=== PATIENT | male | born 1985 | race Hispanic/Latino ===

== ENCOUNTER 2025-06-16 14:10 | Emergency (ER) | payer MEDICAID ==
[~2025-06-16] VITALS: Ht 165.1 cm; Wt 69.9 kg
[~2025-06-16 14:10] MED LIST: CYCL-309 PO; DEXAMETHASONE 1.5 MG PO; IBUP-2077 PO
[2025-06-16 15:08] LABS: APPEARANCE,URINE CLEAR (CLEAR); GLUCOSE, URINE (UA) NEGATIVE (NEGATIVE); LEUKOCYTE ESTERASE ,URINE NEGATIVE Leu/uL (NEGATIVE); NITRATE,URINE NEGATIVE (NEGATIVE); OCCULT BLOOD,URINE NEGATIVE (NEGATIVE)
[2025-06-16 15:17] LABS: IMMATURE GRANULOCYTE ABSOLUTE 0.02 K/uL (0-1); NUCLEATED RED BLOOD CELLS 0.0 % (0.0-0.19); PLATELET COUNT (AUTO) 216 K/uL (130-400); RED BLOOD CELL COUNT(AUTO) 4.85 MIL/uL (4.50-6.20); RED CELL DISTRIBUTION WIDTH 13.1 % (11.0-15.5); WHITE BLOOD COUNT (AUTO) 6.3 K/uL (4.8-10.8)
[2025-06-16 15:25] LABS: CREATININE 1.0 mg/dL (0.5-1.3); GLOMERULAR FILTR. RATE CALC 98.0 mL/min (>90); GLUCOSE,RANDOM 104.0 mg/dL (70-105); SODIUM SERUM 137.0 mmol/L (136-145); UREA NITROGEN, BLOOD 16.0 mg/dL (7-18)
[2025-06-16 15:34] LABS: ADD UA MICROSCOPIC NO
--- NOTE | 2025-06-16 18:19 | ERN ---
General Chief Complaint: Abdominal Pain Stated Complaint: ABD PAIN Time Seen by MD: 16:51 Time Seen by Midlevel: 16:51 Source: patient History of Present Illness Initial Comments Patient is a 39-year-old male with no significant past medical history presenting to the emergency department for evaluation of intermittent right upper quadrant abdominal pain that has been ongoing for one week. He was seen at [facility] last week and was told his liver enzymes are elevated and ultimately discharged home. Today he reports with increased pain. Denies any alcohol intake. He does admit to taking Nitric Oxide supplementation in his concerned this may be causing his elevated liver enzymes. The pain is worse with deep inspiration. Denies any other symptoms Allergies: Coded Allergies: No Known Drug Allergies (Verified Allergy, 08/23/12) Home Meds Active Scripts Cyclobenzaprine HCl (Cyclobenzaprine HCl) 10 Mg Tablet, 10 MG PO TID, #15 TAB 0 Refills Prov:HUBER PERALTA MD 04/19/22 Ibuprofen (Ibuprofen 800 mg Tab) 800 Mg Tab, 800 MG PO Q8HR PRN for PAIN, #30 TAB 0 Refills Prov:HUBER PERALTA MD 04/19/22 [Dexpak 6 Day 1.5 Mg] No Conflict Check, 1 BAR PO DAILY for 6 Days, #1 PACK 0 Refills Prov:HUBER PERALTA MD 04/19/22 Past Medical History Past Medical History: No Pertinent History Past Surgical History: Other Surgical History Other: LEFT CLUB FOOT SX ROS Dictation CONSTITUTIONAL: Negative except for HPI HEAD/FACE: Negative except for HPI EENT: Negative except for HPI RESPIRATORY: Negative except for HPI GASTROINTESTINAL/ABDOMINAL: Negative except for HPI GENITOURINARY: Negative except for HPI MUSCULOSKELETAL: Negative except for HPI INTEGUMENTARY: Negative except for HPI NEUROLOGICAL/PSYCH: Negative except for HPI HEMATOLOGIC/LYMPHATIC: Negative except for HPI All Systems Negative, Except as noted above. 13 point review of systems assessed and all negative except for above. Physical Exam Physical Exam Dictation Vital Signs reviewed General Appearance: Alert, oriented x 3, no acute distress, well developed, nourished. Head and Face: non-traumatic. Eyes: PERRL, pink conjunctivas, eyelid no trauma, anterior chamber with arcus senilis. Ears: Pinnas intact and no signs of trauma or erythema ear canals clear and no discharge TM no erythema Nose: No discharge, no bleeding. Oropharynx: Mouth normal, tongue pink, pharynx clear,no erythema, tonsils no exudates, no abscesses noted, mucous membrane moist Neck: Supple, non-tender, no thyromegaly, no masses, no JVD, no bruits Breast:Deferred Chest:No tenderness, no crepitus, no paradoxical movement, no retractions Lungs:Clear, well-ventilated, symmetric, no rales, no wheezing, no rhonchi, no stridor, good breath sounds bilaterally Heart: Regular rate, regular rhythm, no murmur, no gallops Vascular: no peripheral edema, Abdomen: Soft, positive bowel sounds, nondistended, no guarding, nontender, no rebound, no masses no hepatomegaly, no splenomegaly, no Barclay's sign, no hernias. Rectal: Deferred Genital: Deferred Neurological: Normal speech, motor function intact, sensory function intact Musculoskeletal: Neck nontender, full range of motion, back nontender, full range of motion, Extremities: nontender, full range of motion Skin: Color pink, dry, no turgor, no rash, no lacerations, no abrasions, no contusions. Lymphatic: Deferred Results Laboratory and Microbiology Lab and Micro Result Laboratory Tests Test 06/16/25 15:00 06/16/25 15:12 Urine Color LIGHT-YELLOW (YELLOW) Urine Appearance CLEAR (CLEAR) Urine pH 6.5 (5.0-8.0) Urine Specific [place] 1.012 (1.001-1.031) Urine Protein NEGATIVE mg/dL (NEGATIVE) Urine Glucose (UA) NEGATIVE mg/dL (NEGATIVE) Urine Ketones NEGATIVE mg/dL (NEGATIVE) Urine Occult Blood NEGATIVE (NEGATIVE) Urine Nitrate NEGATIVE (NEGATIVE) Urine Bilirubin NEGATIVE mg/dL (NEGATIVE) Urine Urobilinogen 0.2 mg/dL (0.2-1.0) Urine Leukocyte Esterase NEGATIVE Teodoro/uL White Blood Count 6.3 K/uL (4.8-10.8) Red Blood Count 4.85 MIL/uL (4.50-6.20) Hemoglobin 14.8 g/dL (14.0-18.0) Hematocrit 43.9 % (42-54) Mean Corpuscular Volume 90.5 fL (79-99) Mean Corpuscular Hemoglobin 30.5 pg (27.0-33.0) Mean Corpuscular Hemoglobin Concent 33.7 g/dL (32.0-36.0) Red Cell Distribution Width 13.1 % (11.0-15.5) Platelet Count 216 K/uL (130-400) Mean Platelet Volume 9.0 fL (7.5-10.5) Immature Granulocyte % (Auto) 0.3 % (0-1) Neutrophils (%) (Auto) 63.3 % (40.0-77.0) Lymphocytes (%) (Auto) 28.0 % (21.0-51.0) Monocytes (%) (Auto) 8.1 % (3.0-13.0) Eosinophils (%) (Auto) 0.0 % (0.0-8.0) Basophils (%) (Auto) 0.3 % (0.0-5.0) Neutrophils # (Auto) 4.0 K/uL (1.8-7.7) Lymphocytes # (Auto) 1.8 K/uL (1.0-4.8) Monocytes # (Auto) 0.5 K/uL (0.1-1.0) Eosinophils # (Auto) 0.00 K/uL (0.00-0.70) Basophils # (Auto) 0.02 K/uL (0.00-0.20) Absolute Immature Granulocyte (auto 0.02 K/uL (0-1) Nucleated Red Blood Cells 0.0 % (0.0-0.19) Sodium Level 137 mmol/L (136-145) Potassium Level 4.0 mmol/L (3.5-5.1) Chloride Level 100 mmol/L (101-111) L Carbon Dioxide Level 33 mmol/L (21-32) H Blood Urea Nitrogen 16 mg/dL (7-18) Creatinine 1.0 mg/dL (0.5-1.3) Glomerular Filtration Rate Calc 98 mL/min (>90) Random Glucose 104 mg/dL (70-105) Total Calcium 9.2 mg/dL (8.5-10.1) Total Bilirubin 0.5 mg/dL (0.2-1.0) Direct Bilirubin 0.1 mg/dL (0.0-0.3) Aspartate Amino Transf (AST/SGOT) 25 U/L (10-37) Alanine Aminotransferase (ALT/SGPT) 44 U/L (12-78) Alkaline Phosphatase 72 U/L (50-136) Total Protein 7.4 g/dL (6.0-8.3) Albumin 4.0 g/dL (3.5-5.0) Lipase 40 U/L (16-77) Labs Reviewed?: Yes MDM Patient is a 39-year-old male with no significant past medical history presenting to the emergency department for evaluation of intermittent right upper quadrant abdominal pain that has been ongoing for one week. He was seen at [facility] last week and was told his liver enzymes are elevated and ultimately discharged home. Today he reports with increased pain. Denies any alcohol intake. He does admit to taking Nitric Oxide supplementation in his concerned this may be causing his elevated liver enzymes. The pain is worse with deep inspiration. Denies any other symptoms. On physical examination patient is in no acute distress. There was no right upper quadrant tenderness on my examination however given his recent elevated liver enzymes I will go ahead and obtain an ultrasound and liver function tests. Our liver enzyme tests here are negative. Patient's CBC is normal. Patient's urine is normal. ED Course Orders Procedure Category Date Status Time Urinalysis Profile LAB 06/16/25 Complete 15:01 Cbc With Differential LAB 06/16/25 Complete 15:01 Lipase LAB 06/16/25 Complete 15:01 Basic Metabolic Panel LAB 06/16/25 Complete 15:01 Hepatic Function Panel LAB 06/16/25 Complete 18:08 Us Abdominal Ruq\Ltd US 06/16/25 Taken 18:08 Chest 1vw RAD 06/16/25 Taken 18:13 Vital Signs Date Time Temp Pulse Resp B/P (MAP) Pulse Ox O2 Delivery O2 Flow Rate FiO2 06/16/25 15:26 98.1 55 16 126/60 100 Room Air* 0 21 06/16/25 14:15 98.1 58 18 126/60 98 Room Air 0 DX & DISP Disposition: Discharge Departure Impression: Primary Impression: Abdominal pain Condition: Stable Additional Instructions: 39-year-old healthy male comes in with concerns for elevated liver function tests. We have repeated them here and they are negative. We have performed an ultrasound and it did not show gallbladder disease. Your other laboratory tests were normal. I recommend stopping the testosterone supplements. You do not need them. And they can cause more problems such as blood clotting and liver damage. Referrals: ROBERTO DONAHUE MD (PCP) I have reviewed the case, and I agree with, Diagnosis and Plan I performed the substantive portion of the visit. I have reviewed and personally made and approve the management plan that is documented in the note by myself or the SUJATA. I acknowledge for responsibility for the patient's management plan. KATYA GARCIA Jun 16, 2025 18:19 KUN COOL MD Jun 16, 2025 19:15
[2025-06-16 18:34] LABS: ASPARTATE AMINOTRANSFERASE 25.0 U/L (10-37); TOTAL PROTEIN, SERUM 7.4 g/dL (6.0-8.3)
--- NOTE | 2025-06-16 19:07 | HMCIMG ---
EXAM: CR Chest, 1 View. CLINICAL HISTORY: r/o pneumo COMPARISON: None provided. FINDINGS: LUNGS: There is no mass, infiltrate, or acute pulmonary abnormality. PLEURAL SPACES: No pleural effusion or pneumothorax. MEDIASTINUM: The cardiomediastinal silhouette is within normal limits. BONES: No aggressive appearing osseous lesion seen. IMPRESSION: No acute cardiopulmonary pathology is evident. /[place]
[2025-06-16 19:37] VITALS: BP 124/60; PULSE 58; RESP 16; TEMP 98.1; O2SAT 100
--- NOTE | 2025-06-16 19:59 | HMCIMG ---
EXAMINATION: US Abdomen, Right Upper Quadrant. CLINICAL HISTORY: Patient presents with right upper quadrant abdominal pain. TECHNIQUE: Right upper quadrant sonography performed with image documentation. COMPARISON: None provided. FINDINGS: LIVER: The liver measures 15.2 cm and is within normal limits in echogenicity. No focal liver mass is identified. GALLBLADDER: The gallbladder wall thickness is 1 mm. The gallbladder appears normal. No gallstones are identified. COMMON BILE DUCT: The common bile duct measures 3 mm, within normal limits. PANCREAS: The visualized pancreas appears within normal limits. RIGHT KIDNEY: The right kidney measures 11.6 x 5.9 x 5.5 cm. Renal contours are normal. No renal mass, calculus, or hydronephrosis. IMPRESSION: Normal right upper quadrant ultrasound. Normal appearance of the gallbladder without cholelithiasis or wall thickening. No biliary dilatation. /[place]
== END 2025-06-16 19:43 | disposition home or self-care (01) ==
LOC: EDH 14:10
DX: R10.11 Right upper quadrant pain (principal); Z79.899 Other long term (current) drug therapy
CPT/HCPCS: 36415; 71045; 76705; 80048; 80076; 81003; 83690; 85025; 99284

== ENCOUNTER 2025-06-25 14:37 | Emergency (ER) | payer MEDICAID ==
[~2025-06-25] VITALS: Ht 165.1 cm; Wt 69.9 kg
--- NOTE | 2025-06-25 14:43 | ERN ---
ED Note History of Present Illness Stated Complaint: CP Chief Complaint: Chest Pain Time Seen by MD: 14:38 Dictation: PATIENT IS A 39-YEAR-OLD MALE COMING IN TODAY WITH COMPLAINTS OF SUBSTERNAL CHEST PAIN THAT RADIATES TO HIS LEFT SHOULDER ONSET 1 HOUR PRIOR TO ARRIVAL. HE STATES HE WAS WORK WHEN HE FELT IT AND IT WAS LIKE A SQUEEZING SENSATION. NO SHORTNESS BREATH NO BACK PAIN NO JAW PAIN. 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 DOES HAVE A HISTORY OF A MURMUR A BABY. HAS BEEN SEEN AT [facility] IN THE PAST FOR THE SAME COMPLAINT. NEVER FOLLOWED UP WITH THE PRIMARY CARE DOCTOR TELEPHONE SERVICE ADVISER'S. NO PAIN AT THE PRESENT TIME. Allergies: Coded Allergies: No Known Drug Allergies (Verified Allergy, 08/23/12) Home Meds Active Scripts Cyclobenzaprine HCl (Cyclobenzaprine HCl) 10 Mg Tablet, 10 MG PO TID, #15 TAB 0 Refills Prov:HUBER PERALTA MD 04/19/22 Ibuprofen (Ibuprofen 800 mg Tab) 800 Mg Tab, 800 MG PO Q8HR PRN for PAIN, #30 TAB 0 Refills Prov:HUBER PERALTA MD 04/19/22 [Dexpak 6 Day 1.5 Mg] No Conflict Check, 1 BAR PO DAILY for 6 Days, #1 PACK 0 Refills Prov:HUBER PERALTA MD 04/19/22 Past Medical History Past Medical History: No Pertinent History Surgical History: Other Surgical History Other: LEFT CLUB FOOT SX RN Note Reviewed/Agreed w/PFSH: Yes Review of System Dictation CONSTITUTIONAL: NEGATIVE EXCEPT FOR HPI HEAD/FACE: NEGATIVE EXCEPT FOR HPI EENT: NEGATIVE EXCEPT FOR HPI RESPIRATORY: NEGATIVE EXCEPT FOR HPI SUBSTERNAL CHEST PAIN THAT RADIATES TO LEFT SHOULDER GASTROINTESTINAL/ABDOMINAL: NEGATIVE EXCEPT FOR HPI GENITOURINARY: NEGATIVE EXCEPT FOR HPI MUSCULOSKELETAL: NEGATIVE EXCEPT FOR HPI INTEGUMENTARY: NEGATIVE EXCEPT FOR HPI NEUROLOGICAL/PSYCH: NEGATIVE EXCEPT FOR HPI HEMATOLOGIC/LYMPHATIC: NEGATIVE EXCEPT FOR HPI ALL SYSTEMS NEGATIVE, EXCEPT NOTED ABOVE. 13 POINT REVIEW OF SYSTEMS ASSESSED AND ALL NEGATIVE EXCEPT FOR ABOVE. Initial Vital Sign VS Vital Signs Date Time Temp Pulse Resp B/P (MAP) Pulse Ox O2 Delivery O2 Flow Rate FiO2 06/25/25 14:38 97.9 60 17 124/74 96 Room Air 06/25/25 15:03 0 21 Physical Exam Dictation VITAL SIGNS REVIEWED GENERAL APPEARANCE: ALERT, ORIENTED X 3, NO ACUTE DISTRESS, WELL DEVELOPED, NOURISHED. NO PAIN AT THE PRESENT TIME EYES: PERRL, PINK CONJUNCTIVAS, EYELID NO TRAUMA, ANTERIOR CHAMBER WITH ARCUS SENILIS. EARS: PINNAS INTACT AND NO SIGNS OF TRAUMA OR ERYTHEMA EAR CANALS CLEAR AND NO DISCHARGE TM NO ERYTHEMA NOSE: NO DISCHARGE, NO BLEEDING. OROPHARYNX: MOUTH NORMAL, TONGUE PINK, PHARYNX CLEAR,NO ERYTHEMA, TONSILS NO EXUDATES, NO ABSCESSES NOTED, MUCOUS MEMBRANE MOIST NECK: SUPPLE, NON-TENDER, NO THYROMEGALY, NO MASSES, NO JVD, NO BRUITS BREAST:DEFERRED CHEST:NO TENDERNESS, NO CREPITUS, NO PARADOXICAL MOVEMENT, NO RETRACTIONS LUNGS:CLEAR, WELL-VENTILATED, SYMMETRIC, NO RALES, NO WHEEZING, NO RHONCHI, NO STRIDOR, GOOD BREATH SOUNDS BILATERALLY HEART: REGULAR RATE, REGULAR RHYTHM, NO MURMUR, NO GALLOPS VASCULAR: NO PERIPHERAL EDEMA, ABDOMEN: SOFT, POSITIVE BOWEL SOUNDS, NONDISTENDED, NO GUARDING, NONTENDER, NO REBOUND, NO MASSES NO HEPATOMEGALY, NO SPLENOMEGALY, NO WOOD'S SIGN, NO HERNIAS. RECTAL: DEFERRED GENITAL: DEFERRED NEUROLOGICAL: NORMAL SPEECH, MOTOR FUNCTION INTACT, SENSORY FUNCTION INTACT MUSCULOSKELETAL: NECK NONTENDER, FULL RANGE OF MOTION, BACK NONTENDER, FULL RANGE OF MOTION, EXTREMITIES: NONTENDER, FULL RANGE OF MOTION SKIN: COLOR PINK, DRY, NO TURGOR, NO RASH, NO LACERATIONS, NO ABRASIONS, NO CONTUSIONS. LYMPHATIC: DEFERRED Results (Laboratory/Radiology) Laboratory/Radiology Laboratory Tests Test 06/25/25 14:51 06/25/25 14:55 06/25/25 15:58 Urine Color COLORLESS (YELLOW) Urine Appearance CLEAR (CLEAR) Urine pH 6.0 (5.0-8.0) Urine Specific [place] 1.007 (1.001-1.031) Urine Protein NEGATIVE mg/dL (NEGATIVE) Urine Glucose (UA) NEGATIVE mg/dL (NEGATIVE) Urine Ketones NEGATIVE mg/dL (NEGATIVE) Urine Occult Blood NEGATIVE (NEGATIVE) Urine Nitrate NEGATIVE (NEGATIVE) Urine Bilirubin NEGATIVE mg/dL (NEGATIVE) Urine Urobilinogen 0.2 mg/dL (0.2-1.0) Urine Leukocyte Esterase NEGATIVE Teodoro/uL Urine Opiates Screen NEGATIVE (NEGATIVE) Urine Barbiturates Screen NEGATIVE (NEGATIVE) Urine Phencyclidine Screen NEGATIVE (NEGATIVE) Urine Amphetamines Screen NEGATIVE (NEGATIVE) Urine Benzodiazepines Screen NEGATIVE (NEGATIVE) Urine Cocaine Screen NEGATIVE (NEGATIVE) Urine Marijuana (THC) Screen POSITIVE (NEGATIVE) H White Blood Count 6.5 K/uL (4.8-10.8) Red Blood Count 4.62 MIL/uL (4.50-6.20) Hemoglobin 13.9 g/dL (14.0-18.0) L Hematocrit 41.5 % (42-54) L Mean Corpuscular Volume 89.8 fL (79-99) Mean Corpuscular Hemoglobin 30.1 pg (27.0-33.0) Mean Corpuscular Hemoglobin Concent 33.5 g/dL (32.0-36.0) Red Cell Distribution Width 12.9 % (11.0-15.5) Platelet Count 232 K/uL (130-400) Mean Platelet Volume 8.8 fL (7.5-10.5) Immature Granulocyte % (Auto) 0.3 % (0-1) Neutrophils (%) (Auto) 57.2 % (40.0-77.0) Lymphocytes (%) (Auto) 34.9 % (21.0-51.0) Monocytes (%) (Auto) 7.1 % (3.0-13.0) Eosinophils (%) (Auto) 0.2 % (0.0-8.0) Basophils (%) (Auto) 0.3 % (0.0-5.0) Neutrophils # (Auto) 3.7 K/uL (1.8-7.7) Lymphocytes # (Auto) 2.3 K/uL (1.0-4.8) Monocytes # (Auto) 0.5 K/uL (0.1-1.0) Eosinophils # (Auto) 0.01 K/uL (0.00-0.70) Basophils # (Auto) 0.02 K/uL (0.00-0.20) Absolute Immature Granulocyte (auto 0.02 K/uL (0-1) Nucleated Red Blood Cells 0.0 % (0.0-0.19) Sodium Level 138 mmol/L (136-145) Potassium Level 3.6 mmol/L (3.5-5.1) Chloride Level 102 mmol/L (101-111) Carbon Dioxide Level 27 mmol/L (21-32) Blood Urea Nitrogen 20 mg/dL (7-18) H Creatinine 0.8 mg/dL (0.5-1.3) Glomerular Filtration Rate Calc 115 mL/min (>90) Random Glucose 96 mg/dL (70-105) Total Calcium 8.8 mg/dL (8.5-10.1) Magnesium Level 1.90 mg/dL (1.80-2.40) Troponin I High Sensitivity 17 ng/L (4-75) 15 ng/L (4-75) Labs Reviewed?: Yes EKG Comment: EKG sinus bradycardia/heart rate 54/repolarization changes seen in lateral leads. 1557/EKG SINUS BRADYCARDIA/HEART RATE 51/AXIS NORMAL/EARLY REPOLARIZATION SEEN IN LATERAL LEADS V4 THROUGH SIX NO CHANGES HIGH SENSITIVITY TROPONIN IS 15/HEART SCORE IS ONE ED Course ED Course Orders Procedure Category Date Status Time Drug Screen Urine LAB 06/25/25 Complete 14:39 Cbc With Differential LAB 06/25/25 Complete 14:39 Chest 1vw RAD 06/25/25 Resulted 14:39 12 Lead Ekg Tracing- EKG 06/25/25 Logged Technical 14:39 Magnesium LAB 06/25/25 Complete 14:39 Troponin I High LAB 06/25/25 Complete Sensitivity 14:39 Urinalysis Profile LAB 06/25/25 Complete 14:39 Basic Metabolic Panel LAB 06/25/25 Complete 14:39 12 Lead Ekg Tracing- EKG 06/25/25 Logged Technical 15:52 Troponin I High LAB 06/25/25 Complete Sensitivity 15:52 Vital Signs Date Time Temp Pulse Resp B/P (MAP) Pulse Ox O2 Delivery O2 Flow Rate FiO2 06/25/25 15:47 97.9 58 19 121/73 99 Room Air* 0 21 06/25/25 15:03 97.9 53 19 141/76 99 Room Air* 0 21 06/25/25 14:38 97.9 60 17 124/74 96 Room Air 1640/PATIENT DISCHARGED HOME WITH ATYPICAL CHEST PAIN/MARIJUANA USE AND ANXIETY. HEART Score Response (Comments) Value EKG: Normal 0 Age: 45-65yrs (+1) 1 Risk Factors: No known risk factors (0) 0 Initial Troponin: Normal limit (0) 0 Total 1 Medical Decision Making MDM MDM: DIFFERENTIAL DIAGNOSIS: ACS/AMI/DRUG ABUSE/ELECTROLYTE IMBALANCE/DEHYDRATION/ARRHYTHMIA/PNEUMONIA/BRONCHITIS RATIONALE: TESTS CONSIDERED AND ORDERED SECONDARY TO SHARED DECISION MAKING INCLUDE: EKG/LABS/RADIOLOGY PREVIOUS OUTSIDE RECORDS REVIEWED: OLD ER VISITS. RISK OF COMPLICATION AND/OR MORBIDITY OR MORTALITY OF PATIENT MANAGEMENT: NONE MEDICATIONS-PER MEDICATION RECONCILIATION NEED FOR HOSPITALIZATION: PATIENT DOES NOT MEET CRITERIA FOR HOSPITALIZATION. NONE NEED FOR EMERGENCY MAJOR/MINOR SURGERY: NO THERE ARE NO SOCIAL CONCERNS WITH THIS PATIENT. PRESCRIPTION DRUG MANAGEMENT NONE PRESCRIPTIONS WILL INCLUDE SYMPTOMATIC CARE PATIENT'S PRIOR EXTERNAL MEDICAL RECORDS FROM OTHER ER VISITS WERE REVIEWED BY ME INDICATED. PRIOR TESTING AND RESULTS FROM PREVIOUS VISITS WERE REVIEWED. PRIOR TESTS WERE TAKEN INTO ACCOUNT WITH MEDICAL DECISION MAKING AND RESOURCE UTILIZATION, INDEPENDENT HISTORIAN/HISTORIANS WERE USED TO OBTAIN COMPLETE MEDICAL HISTORY. I INDEPENDENTLY INTERPRETED THE TEST THAT WERE PERFORMED, RESULTS WERE REVIEWED BY ME AND CONSIDERED FINDINGS ON RADIOLOGY IF ORDERED. MEDICAL MANAGEMENT AND EXAMINATION INTERPRETATION DISCUSSIONS WERE HAD BY ME WITH OTHER QUALIFIED HEALTHCARE PROFESSIONALS INDICATED FOR THE PATIENT'S CARE. DX & DISP Disposition: Discharge Departure Impression: Primary Impression: Atypical chest pain Additional Impressions: Marijuana smoker, Anxiety Condition: Stable Additional Instructions: FOLLOW-UP WITH PRIMARY CARE PROVIDER IN 1 TO 2 DAYS. TAKE MEDICATIONS DIRECTED HERE IN THE EMERGENCY ROOM. OKAY TO CONTINUE HOME MEDICATIONS UNLESS OTHERWISE DISCUSSED DURING YOUR VISIT IN THE EMERGENCY ROOM TODAY. RETURN TO YOUR NEAREST EMERGENCY ROOM IF SYMPTOMS WORSEN OR IF THERE IS NO IMPROVEMENT. CALL 911 IF YOU NEED IMMEDIATE ASSISTANCE. TAKE TYLENOL OR MOTRIN SANO-[id number] NEEDED AND IF NO CONTRAINDICATIONS ARE PRESENT. INCREASE ORAL HYDRATION. A WOUND CULTURE OR URINE CULTURE WAS ORDERED HERE IN THE EMERGENCY ROOM DEPARTMENT PLEASE FOLLOW-UP WITH PRIMARY CARE PROVIDER AND ADVISE THEM TO GET REPEAT PORTS FROM OUR FACILITY. IF YOU HAD ANY ADAMS WRAP/SPLINTS THAT WERE APPLIED HERE, PLEASE DO NOT REMOVE THEM UNTIL YOU SEE YOUR PRIMARY CARE OR SPECIALTY. DIET ACTIVITY TOLERATED. STOP SMOKING MARIJUANA. FOLLOW UP WITH YOUR PRIMARY CARE DOCTOR IN THE [place] 1-2 DAYS NEEDED. Referrals: ROBERTO DONAHUE MD (PCP) Time of Disposition: 16:44 I have reviewed the case, and I agree with, Diagnosis and Plan LIZZY GRECO NP Jun 25, 2025 14:43
[2025-06-25 15:04] LABS: APPEARANCE,URINE CLEAR (CLEAR); GLUCOSE, URINE (UA) NEGATIVE (NEGATIVE); LEUKOCYTE ESTERASE ,URINE NEGATIVE Leu/uL (NEGATIVE); NITRATE,URINE NEGATIVE (NEGATIVE); OCCULT BLOOD,URINE NEGATIVE (NEGATIVE)
[2025-06-25 15:06] LABS: IMMATURE GRANULOCYTE ABSOLUTE 0.02 K/uL (0-1); NUCLEATED RED BLOOD CELLS 0.0 % (0.0-0.19); PLATELET COUNT (AUTO) 232 K/uL (130-400); RED BLOOD CELL COUNT(AUTO) 4.62 MIL/uL (4.50-6.20); RED CELL DISTRIBUTION WIDTH 12.9 % (11.0-15.5); WHITE BLOOD COUNT (AUTO) 6.5 K/uL (4.8-10.8)
[2025-06-25 15:08] LABS: ADD UA MICROSCOPIC NO
[2025-06-25 15:10] LABS: AMPHET/METH SCREEN,URINE NEGATIVE (NEGATIVE); BARBITURATE SCREEN, URINE NEGATIVE (NEGATIVE); CANNABINOID SCREEN,URINE POSITIVE (NEGATIVE); COCAINE SCREEN,URINE NEGATIVE (NEGATIVE)
[2025-06-25 15:14] LABS: CREATININE 0.8 mg/dL (0.5-1.3); GLOMERULAR FILTR. RATE CALC 115.0 mL/min (>90); GLUCOSE,RANDOM 96.0 mg/dL (70-105); SODIUM SERUM 138.0 mmol/L (136-145); UREA NITROGEN, BLOOD 20.0 mg/dL (7-18)
--- NOTE | 2025-06-25 16:01 | HMCIMG ---
EXAM: CR Chest, 1 View. CLINICAL HISTORY: CHEST PAIN COMPARISON: 06/16/2025 chest single view. FINDINGS: LUNGS: The lungs show no infiltrate or other acute finding. PLEURAL SPACES: No evidence of pleural effusion or pneumothorax. MEDIASTINUM: The cardiomediastinal silhouette is within normal limits. BONES: No acute osseous abnormality. IMPRESSION: No acute cardiopulmonary pathology is evident. /[place]
[2025-06-25 16:49] VITALS: BP 128/77; PULSE 61; RESP 19; TEMP 97.9; O2SAT 99
--- NOTE | 2025-06-26 06:31 | EKG ---
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
--- NOTE | 2025-06-26 06:31 | EKG ---
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
== END 2025-06-25 16:54 | disposition home or self-care (01) ==
LOC: EDH 14:37
DX: R07.89 Other chest pain (principal); F12.90 Cannabis use, unspecified, uncomplicated; F41.9 Anxiety disorder, unspecified; Z79.899 Other long term (current) drug therapy
CPT/HCPCS: 36415; 71045; 80048; 80305; 81003; 83735; 84484; 85025; 93005; 99285

== ENCOUNTER 2025-07-28 05:16 | Observation (INO) | payer MEDICAID ==
[~2025-07-28] VITALS: Ht 167.6 cm; Wt 64.4 kg
--- NOTE | 2025-07-28 05:28 | ERN ---
ED Note History of Present Illness Stated Complaint: HEADACHE, DRY MOUTH Chief Complaint: Other Problems Time Seen by MD: 05:24 Dictation: This is a 39-year-old male who presented to the emergency room with multiple somatic complaints including dry mouth and posterior headache, chest discomfort for the past 2 days. Dry mouth and some of the chronic complaints have been going on for months he stated that he went for duck hunting and after he came back at 2:00 p.m. he took a nap and in the evening went out with his mother to run some errands and by supplies for his new apartment. He stated that he had chest discomfort and sweating. He came into the ER for further evaluation. He denied any syncope. He is very vague about the chest discomfort mostly saying tingling to charge nurse and me. No radiation to any area. Temperature 97.5 pulse 61 respirations 17 blood pressure 126/86 pulse oximetry 98% on room air Allergies: Coded Allergies: No Known Drug Allergies (Verified Allergy, Unknown, 07/28/25) hydrocodone (Unverified Allergy, Unknown, 07/28/25) tramadol (Unverified Allergy, Unknown, 07/28/25) Home Meds Active Scripts Cyclobenzaprine HCl (Cyclobenzaprine HCl) 10 Mg Tablet, 10 MG PO TID, #15 TAB 0 Refills Prov:HUBER PERALTA MD 04/19/22 Ibuprofen (Ibuprofen 800 mg Tab) 800 Mg Tab, 800 MG PO Q8HR PRN for PAIN, #30 TAB 0 Refills Prov:HUBER PERALTA MD 04/19/22 [Dexpak 6 Day 1.5 Mg] No Conflict Check, 1 BAR PO DAILY for 6 Days, #1 PACK 0 Refills Prov:HUBER PERALTA MD 04/19/22 Past Medical History Past Medical History: No Pertinent History Surgical History: Other Surgical History Other: LEFT LEG SX Family History: Negative Social History: Smokers (Vaping, dips nicotine) RN Note Reviewed/Agreed w/PFSH: Yes Review of System Dictation Constitutional: Negative for fever,chills, and weight loss Eyes: Negative for injury, pain,redness, and discharge ENT: Negative for injury,pain or swelling Cardiovascular: Positive for chest discomfort, denies palpitations, and edema Respiratory: Negative for shortness of breath, cough, and wheezing, Abdomen/GI: Positive for upper abdominal pain, positive for nausea, vomiting, diarrhea, and constipation Back: Negative for injury and pain : Negative for injury, bleeding and discharge MS/Extremity: Negative for injury and deformity Skin: Negative for rash, and discoloration Neuro: Negative for headache, weakness, numbness, tingling, and seizure Psych: Negative for suicide ideation, homicidal ideation, and hallucinations Initial Vital Sign VS Vital Signs Date Time Temp Pulse Resp B/P (MAP) Pulse Ox O2 Delivery O2 Flow Rate FiO2 07/28/25 05:23 97.5 61 17 121/86 98 Room Air 0 07/28/25 05:28 21 Physical Exam Dictation General: awake, alert, NAD Head/Face: Normocephalic, atraumatic Eyes: PERRL, EOMI, vision at baseline ENT: oral cavity clear, TMs clear, no signs of infection Neck: Trachea midline, supple, no nuchal rigidity Cardiovascular: RRR, normal S1/S2, No MRGs, no JVD Respiratory: CTAB, no respiratory distress, No rales or wheezes Abdomen: Soft, non-tender, non-distended, normal bowel sounds, no guarding or rebound. Skin: Warm, dry, normal turgor, no rash MS/Extremity: Pulses equal, no cyanosis, neurovascular intact, FROM Neuro: COAx4, GCS 15, strength 5/5, CN 2-12 intact, normal cerebellar exam, normal gait, Psych: Normal behavior, mood, and affect normal Extremities-trace edema without any palpable cords, Homans sign is negative Results (Laboratory/Radiology) Laboratory/Radiology Laboratory Tests Test 07/28/25 05:50 07/28/25 06:19 White Blood Count 5.4 K/uL (4.8-10.8) Red Blood Count 4.86 MIL/uL (4.50-6.20) Hemoglobin 14.7 g/dL (14.0-18.0) Hematocrit 42.4 % (42-54) Mean Corpuscular Volume 87.2 fL (79-99) Mean Corpuscular Hemoglobin 30.2 pg (27.0-33.0) Mean Corpuscular Hemoglobin Concent 34.7 g/dL (32.0-36.0) Red Cell Distribution Width 12.7 % (11.0-15.5) Platelet Count 240 K/uL (130-400) Mean Platelet Volume 9.3 fL (7.5-10.5) Immature Granulocyte % (Auto) 0.4 % (0-1) Neutrophils (%) (Auto) 49.9 % (40.0-77.0) Lymphocytes (%) (Auto) 41.0 % (21.0-51.0) Monocytes (%) (Auto) 7.7 % (3.0-13.0) Eosinophils (%) (Auto) 0.4 % (0.0-8.0) Basophils (%) (Auto) 0.6 % (0.0-5.0) Neutrophils # (Auto) 2.7 K/uL (1.8-7.7) Lymphocytes # (Auto) 2.2 K/uL (1.0-4.8) Monocytes # (Auto) 0.4 K/uL (0.1-1.0) Eosinophils # (Auto) 0.02 K/uL (0.00-0.70) Basophils # (Auto) 0.03 K/uL (0.00-0.20) Absolute Immature Granulocyte (auto 0.02 K/uL (0-1) Nucleated Red Blood Cells 0.0 % (0.0-0.19) Sodium Level 136 mmol/L (136-145) Potassium Level 4.0 mmol/L (3.5-5.1) Chloride Level 101 mmol/L (101-111) Carbon Dioxide Level 31 mmol/L (21-32) Blood Urea Nitrogen 17 mg/dL (7-18) Creatinine 0.9 mg/dL (0.5-1.3) Glomerular Filtration Rate Calc 111 mL/min (>90) Random Glucose 105 mg/dL (70-105) Total Calcium 9.0 mg/dL (8.5-10.1) Total Creatine Kinase 215 U/L (21-232) Troponin I High Sensitivity 10.5 ng/L (4-75) Urine Color COLORLESS (YELLOW) Urine Appearance CLEAR (CLEAR) Urine pH 6.0 (5.0-8.0) Urine Specific [place] 1.011 (1.001-1.031) Urine Protein NEGATIVE mg/dL (NEGATIVE) Urine Glucose (UA) NEGATIVE mg/dL (NEGATIVE) Urine Ketones NEGATIVE mg/dL (NEGATIVE) Urine Occult Blood NEGATIVE (NEGATIVE) Urine Nitrate NEGATIVE (NEGATIVE) Urine Bilirubin NEGATIVE mg/dL (NEGATIVE) Urine Urobilinogen 0.2 mg/dL (0.2-1.0) Urine Leukocyte Esterase NEGATIVE [place]/uL Urine Opiates Screen NEGATIVE (NEGATIVE) Urine Barbiturates Screen NEGATIVE (NEGATIVE) Urine Phencyclidine Screen NEGATIVE (NEGATIVE) Urine Amphetamines Screen NEGATIVE (NEGATIVE) Urine Benzodiazepines Screen NEGATIVE (NEGATIVE) Urine Cocaine Screen NEGATIVE (NEGATIVE) Urine Marijuana (THC) Screen NEGATIVE (NEGATIVE) Labs Reviewed?: Yes EKG Comment: Twelve lead EKG done on 07/28/2025 at 5:43 a.m. shows a heart rate of 44, FL interval 131, QRS 94, QT/QTC 451/387. Impression sinus bradycardia with isolated Q's in lead 3. I compared the EKG to the 1 done on 06/25/2025 which basically looks exactly the same and no new changes. EKG rhythm strip shows a normal sinus rhythm with no acute STT wave abnormalities. Interpreted by ER MD Dr. Palma 07/28/2025 time 7:31 a.m. Ventricular rate 43 Sinus bradycardia FL 145 t wave inversion, avr, v1, III, X-RAY Comment: [address] [id number] IMAGING REPORT Signed PATIENT: ELIE BACON MR#: [id number] : 1985 SEX: M AGE: 39 LOCATION: [facility] ORDER [id number] STATUS: REG ER REPORT#: [id number] SERVICE 0536 REASON: chest discomfort ORDERING PHYSICIAN: ELKE PALMA MD PROCEDURE: CXR1VW - CHEST 1VW EXAM: CR Chest, 1 View. CLINICAL HISTORY: chest discomfort COMPARISON: None provided. FINDINGS: LUNGS: The lungs show no infiltrate or other acute finding. PLEURAL SPACES: No pleural effusion or pneumothorax. MEDIASTINUM: Cardiac size and mediastinal contours within normal limits. BONES: No aggressive appearing osseous lesion seen. IMPRESSION: No acute cardiopulmonary pathology is evident. /[place] DICTATED BY: JERRELL WALTON Jr., MD DATE: 07/28/25727 ELECTRONICALLY SIGNED BY: JERRELL WALTON Jr., MD DATE: 07/28/25727 CT Scan Comment: [place] [id number] [place] [address] [id number] IMAGING REPORT Signed PATIENT: ELIE BACON MR#: [id number] : 1985 SEX: M AGE: 39 LOCATION: [facility] ORDER 0 STATUS: REG ER REPORT#: [id number] SERVICE 8 REASON: severe LLQ abdominal pain ORDERING PHYSICIAN: ELKE PALMA MD PROCEDURE: ABD PEL WO - CT ABDOMEN/PELVIS W/O CONTRAST EXAM: CT Abdomen and Pelvis without IV contrast CLINICAL HISTORY: severe LLQ abdominal pain TECHNIQUE: Axial computed tomography images of the abdomen and pelvis without intravenous contrast. CT scan performed according to ALARA. Automated exposure control used during exam. CONTRAST: without intravenous contrast. COMPARISON: None provided. FINDINGS: LUNG BASES: The lung bases appear clear. No pleural effusions are seen. LIVER: Unremarkable. GALLBLADDER AND BILE DUCTS: The gallbladder appears within normal limits. No radioopaque gallstones are seen. No biliary ductal dilatation is evident. PANCREAS: Unremarkable. SPLEEN: Unremarkable. ADRENAL GLANDS: Unremarkable. KIDNEYS, URETERS, AND BLADDER: The kidneys appear within normal limits. There is no hydronephrosis or hydroureter. No urinary calculi are seen. STOMACH AND BOWEL: Unremarkable appearance of the stomach and bowel. No evidence of bowel obstruction. No evidence suggesting enteritis or colitis. APPENDIX: No evidence of acute appendicitis on CT examination. PERITONEUM: No free fluid. No free air. LYMPH NODES: No lymphadenopathy is evident. REPRODUCTIVE: Unremarkable as visualized. VASCULATURE: No evidence of abdominal aortic aneurysm. BONES: No aggressive appearing osseous lesion. No acute osseous pathology evident. Grade one listhesis of L5 on S1. IMPRESSION: No acute intra-abdominal or pelvic abnormality. /[place] DICTATED BY: JERRELL WALTON Jr., MD DATE: 09/21/25 0848 ELECTRONICALLY SIGNED BY: JERRELL WALTON Jr., MD DATE: 07/28/25 0848 ED Course ED Course Orders Procedure Category Date Status Time Cardiac Panel LAB 07/28/25 Complete 05:36 Cbc With Differential LAB 07/28/25 Complete 05:36 Basic Metabolic Panel LAB 07/28/25 Complete 05:36 Urinalysis Profile LAB 07/28/25 Complete 05:36 Drug Screen Urine LAB 07/28/25 Complete 05:36 Chest 1vw RAD 07/28/25 Resulted 05:36 12 Lead Ekg Tracing- EKG 07/28/25 Complete Technical 05:36 Ketorolac PHA 07/28/25 Complete Tromethamine 15mg/Ml 06:00 Cyclobenzaprine Hcl PHA 07/28/25 Complete (Cyclobenzaprine Hcl 06:00 Ketorolac PHA 07/28/25 Complete Tromethamine 15mg/Ml 06:00 Ct Abdomen/Pelvis W/O CT 07/28/25 Resulted Contrast 06:39 12 Lead Ekg Tracing- EKG 07/28/25 Complete Technical 07:03 Troponin I High LAB 07/28/25 Logged Sensitivity 08:28 Current Medications Medications (Trade) Dose Ordered Sig/Brian Route PRN Reason Start Time Stop Time Status Last Admin Dose Admin Cyclobenzaprine HCl (Cyclobenzaprine HCl) 5 mg ONCE ONCE PO 07/28/25 06:00 07/28/25 06:01 DC 07/28/25 06:02 Ketorolac Tromethamine (toRADol) 15 mg ONCE ONCE IM 07/28/25 06:00 07/28/25 06:01 DC 07/28/25 05:59 Ketorolac Tromethamine (toRADol) 15 mg ONCE ONCE IV 07/28/25 06:00 07/28/25 05:45 DC Vital Signs Date Time Temp Pulse Resp B/P (MAP) Pulse Ox O2 Delivery O2 Flow Rate FiO2 07/28/25 06:29 98.2 50 20 127/68 98 Room Air* 0 07/28/25 05:28 98.1 48 18 128/72 98 Room Air* 0 07/28/25 05:23 97.5 61 17 121/86 98 Room Air 0 We will administer medications according to the patient's complaint. Once the results are available, will review and personally interpreted the labs to rule out any acute life-threatening emergency the trach require immediate intervention and treatment. I will then re-evaluate the patient after treatment and diagnostic exams have return to determine whether the patient requires any further testing, can safely be discharged home or need further admission to hospital for additional treatment and evaluation. HEART Score Response (Comments) Value History: Low suspicion (0) 0 EKG: Normal 0 Age: < 45yrs (0) 0 Risk Factors: No known risk factors (0) 0 HEART Score Risk: Low Risk for MACE (1-3) Total 0 Medical Decision Making MDM Differential diagnosis: Atypical chest pain, esophagitis, chest wall pain, unstable angina, gastritis, polysubstance induced pain This is a 39-year-old male who presented to the emergency room with multiple somatic complaints including dry mouth and posterior headache, chest discomfort for the past 2 days. Dry mouth and some of the chronic complaints have been going on for months he stated that he went for duck hunting and after he came back at 2:00 p.m. he took a nap and in the evening went out with his mother to run some errands and by supplies for his new apartment. He stated that he had chest discomfort and sweating. He came into the ER for further evaluation. He denied any syncope. He is very vague about the chest discomfort mostly saying tingling to charge nurse and me. No radiation to any area. Temperature 97.5 pulse 61 respirations 17 blood pressure 126/86 pulse oximetry 98% on room air 6:30 a.m. labs reviewed CBC is with a normal limits BNP 7 is with a normal limits troponins are 10.5. Chest x-ray is unremarkable for any acute infiltrate. Rationale: Tests considered and ordered secondary to shared decision making include: Previous outside records reviewed: Old ER visits. Risk of complication and/or morbidity or mortality of patient management: None Medications-Per medication reconciliation Need for hospitalization: Patient does meet criteria for hospitalization. Need for emergency major/minor surgery: No There are no social concerns with this patient. Prescription drug management Prescriptions will include symptomatic care Patient's prior external medical records from other ER visits were reviewed by me as indicated. Prior testing and results from previous visits were reviewed. Prior tests were taken into account with medical decision making and resource utilization, independent historian/historians were used to obtain complete medical history. I independently interpreted the test that were performed, results were reviewed by me and considered findings on radiology if ordered. Medical management and examination interpretation discussions were had by me with other qualified healthcare professionals as indicated for the patient's care. TO BE PROVIDED UNDER THE CARE OF HOSPITALIST GROUP Problem List Problem List: (1) Sinus bradycardia (2) Atypical chest pain (3) Anxiety (4) Marijuana smoker DX & DISP Disposition: Inpatient Decision to Admit Time: 08:37 Departure Impression: Primary Impression: Atypical chest pain Additional Impressions: Anxiety, Marijuana smoker, Sinus bradycardia Condition: Stable Referrals: ROBERTO DONAHUE MD (PCP) ELKE PALMA MD Jul 28, 2025 05:28 BRITTANY MELENDEZ MD Jul 28, 2025 07:59
--- NOTE | 2025-07-28 05:49 | EKG ---
[facility] Test Date: 2025-07-28 Test Time: 05:43:08 Pat Name: ELIE BACON Department: [facility] Room: ED Gender: M Production Grip: [id number] : 1985 Requested By: ELKE BOWIE Order Number: [id number] Reading MD: Naresh Uriostegui Measurements Intervals [place] Rate: 44 P: 54 DC: 131 QRS: 96 QRSD: 94 T: -13 QT: 451 QTc: 387 Interpretive Statements Sinus bradycardia Compared to ECG 06/25/2025 15:57:47 Sinus rhythm no longer present ST (T wave) deviation no longer present Electronically Signed On 07-28-2025 21:57:29 CDT by Naresh Uriostegui Please click the below link to view image of tracing.
[2025-07-28] MEDS: CYCLOBENZAPRINE HCL 10 MG TABLET PO ONE (06:02)
[2025-07-28 06:03] LABS: IMMATURE GRANULOCYTE ABSOLUTE 0.02 K/uL (0-1); NUCLEATED RED BLOOD CELLS 0.0 % (0.0-0.19); PLATELET COUNT (AUTO) 240 K/uL (130-400); RED BLOOD CELL COUNT(AUTO) 4.86 MIL/uL (4.50-6.20); RED CELL DISTRIBUTION WIDTH 12.7 % (11.0-15.5); WHITE BLOOD COUNT (AUTO) 5.4 K/uL (4.8-10.8)
[2025-07-28 06:23] LABS: CREATINE KINASE, TOTAL 215.0 U/L (21-232); CREATININE 0.9 mg/dL (0.5-1.3); GLOMERULAR FILTR. RATE CALC 111.0 mL/min (>90); GLUCOSE,RANDOM 105.0 mg/dL (70-105); SODIUM SERUM 136.0 mmol/L (136-145); UREA NITROGEN, BLOOD 17.0 mg/dL (7-18)
--- NOTE | 2025-07-28 06:29 | HMCIMG ---
EXAM: CR Chest, 1 View. CLINICAL HISTORY: chest discomfort COMPARISON: None provided. FINDINGS: LUNGS: The lungs show no infiltrate or other acute finding. PLEURAL SPACES: No pleural effusion or pneumothorax. MEDIASTINUM: Cardiac size and mediastinal contours within normal limits. BONES: No aggressive appearing osseous lesion seen. IMPRESSION: No acute cardiopulmonary pathology is evident. /[place]
[2025-07-28 06:40] LABS: APPEARANCE,URINE CLEAR (CLEAR); GLUCOSE, URINE (UA) NEGATIVE (NEGATIVE); LEUKOCYTE ESTERASE ,URINE NEGATIVE Leu/uL (NEGATIVE); NITRATE,URINE NEGATIVE (NEGATIVE); OCCULT BLOOD,URINE NEGATIVE (NEGATIVE)
[2025-07-28 06:41] LABS: ADD UA MICROSCOPIC NO
[2025-07-28 06:47] LABS: AMPHET/METH SCREEN,URINE NEGATIVE (NEGATIVE); BARBITURATE SCREEN, URINE NEGATIVE (NEGATIVE); CANNABINOID SCREEN,URINE NEGATIVE (NEGATIVE); COCAINE SCREEN,URINE NEGATIVE (NEGATIVE)
--- NOTE | 2025-07-28 07:36 | EKG ---
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
--- NOTE | 2025-07-28 07:49 | HMCIMG ---
EXAM: CT Abdomen and Pelvis without IV contrast CLINICAL HISTORY: severe LLQ abdominal pain TECHNIQUE: Axial computed tomography images of the abdomen and pelvis without intravenous contrast. CT scan performed according to ALARA. Automated exposure control used during exam. CONTRAST: without intravenous contrast. COMPARISON: None provided. FINDINGS: LUNG BASES: The lung bases appear clear. No pleural effusions are seen. LIVER: Unremarkable. GALLBLADDER AND BILE DUCTS: The gallbladder appears within normal limits. No radioopaque gallstones are seen. No biliary ductal dilatation is evident. PANCREAS: Unremarkable. SPLEEN: Unremarkable. ADRENAL GLANDS: Unremarkable. KIDNEYS, URETERS, AND BLADDER: The kidneys appear within normal limits. There is no hydronephrosis or hydroureter. No urinary calculi are seen. STOMACH AND BOWEL: Unremarkable appearance of the stomach and bowel. No evidence of bowel obstruction. No evidence suggesting enteritis or colitis. APPENDIX: No evidence of acute appendicitis on CT examination. PERITONEUM: No free fluid. No free air. LYMPH NODES: No lymphadenopathy is evident. REPRODUCTIVE: Unremarkable as visualized. VASCULATURE: No evidence of abdominal aortic aneurysm. BONES: No aggressive appearing osseous lesion. No acute osseous pathology evident. Grade one listhesis of L5 on S1. IMPRESSION: No acute intra-abdominal or pelvic abnormality. /[place]
[2025-07-28] MEDS ORDERED: MAGNESIUM 2GM PREMIX 50ML 50 ML IV PRN (10:00)
[2025-07-28] MEDS ORDERED: PoTASSium chloRIDE 20MEQ ER 20 MEQ ERTAB PO PRN (10:00)
[2025-07-28] MEDS ORDERED: PoTASSium chl 10% ELIXIR 20MEQ 20 MEQ/15 ML UDCUP PO PRN (10:00)
--- NOTE | 2025-07-28 10:15 | HP ---
[facility] HISTORY AND PHYSICAL Date of Service: Jul 28, 2025 Time of Service: 10:06 HISTORY OF PRESENT ILLNESS: 39-year-old male with no significant past medical history who presented to the hospital secondary to chest pain. The patient states for the past 2-3 weeks he has noted pain in the midsternal area. The pain would radiate towards his left arm. He describes the pain as sharp in nature and tingling in nature. Pain is present at rest. Patient does work out in gym and states he is able to perform 200 pushups. During exercise he does not get pain. He has noted that at the end of his workout he feels dizzy and he might be on the verge of passing out. He had never lost consciousness or and denied any syncopal events. He does walk also outside. Denies any falls, syncopal episode with activity. His pain has been intermittent but has been persistent. He was recently admitted to [facility] and per patient he had extensive workup done which was negative. He also feels anxious at home. Denied any shortness of breath with exertion. He has also noted some pain in the left lower quadrant of the abdomen. Denies any diarrhea at home. He has had a constipation at home. Furthermore he states he has noted dry mouth at home and he drinks adequate am ount of fluids at home Labs were notable for white count of 5.4, hemoglobin was 14.7, platelet count was 240 K, sodium was 136, potassium was 4.0, creatinine was 0.9, chloride was 101, troponin was negative x2. In the ED patient's chest x-ray showed no acute abnormality. He underwent a CT abdomen pelvis which showed no acute intra abdominal or pelvic abnormality. In the ED on presentation patient's temperature was 97.5, heart rate was in the 60s. Patient's blood pressure was 121/86, patient was saturating 98% on room air. Patient's heart rate was fluctuating in the 40s while in the ER. ER physician requested patient to be admitted to the hospital for further workup. REVIEW OF SYSTEMS CONSTITUTIONAL: Denies fevers, chills, or night sweats. No unintentional weight loss reported. NEUROLOGICAL: Denies headache, amaurosis fugax, motor weakness, sensory deficit, vertigo/spinning sensation, gait abnormalities, or tremors. ENT: No hearing loss, otalgia, otorrhea, rhinitis, rhinorrhea, hoarseness, or sore throat. CARDIOVASCULAR: Positive for chest pain. Denied any shortness of breath, dyspnea so atrium. PULMONARY: Denies any shortness of breath, cough, phlegm/sputum, hemoptysis, pleuritic chest pain. GASTROINTESTINAL: Denies any type of dysphagia to either liquids or solids. Denies nausea, vomiting, pyrosis, early satiety, abdominal pain, diarrhea, constipation, or changes in stool consistency or caliber. Denies coffee-ground emesis, hematemesis, hematochezia, or melanotic stools. GENITOURINARY: Denies frequency, urgency, nocturia, hematuria or incontinence (Storage/Irritative symptoms.) Low urinary stream, straining to void, urinary intermittency or hesitancy, splitting of the voiding stream, terminal dribbling. ENDOCRINOLOGIC: Denies polyuria, polydipsia, polyphagia or heat/cold intolerances. HEMATOLOGIC: Denies thrombophilia/previous clots, or coagulopathy/bleeding disorders. ONCOLOGIC: Denies personal history of malignancy. DERMATOLOGIC: Denies rashes or pruritus. PSYCHIATRIC: Denies any suicidal or homicidal ideation. Denies hallucinations. PAST MEDICAL HISTORY: [ ] PAST SURGICAL HISTORY: [ ] PAST SOCIAL HISTORY: [ ] FAMILY HISTORY: [ ] Coded Allergies: No Known Drug Allergies (Verified Allergy, Unknown, 07/28/25) hydrocodone (Unverified Allergy, Unknown, 07/28/25) tramadol (Unverified Allergy, Unknown, 07/28/25) PHYSICAL EXAM GENERAL APPEARANCE: The patient is awake, alert, and oriented, in no acute cardiopulmonary distress. NEUROLOGICAL: Cranial nerves II-XII grossly intact. Motor is 5/5 in bilateral upper and lower extremities proximal to distal. No sensory deficits. HEENT: Face is symmetric. Pupils are equal and reactive. Extraocular movements are intact. NECK: Supple. No JVD. No thyromegaly. No submental, submandibular, pre- /postauricular, occipital or supraclavicular lymphadenopathy. CHEST: Normal chest expansion. No Telemetry. LUNGS: Absence of any rales, rhonchi or any wheezing. CARDIOVASCULAR: Regular. S1 and S2 normal. No appreciable rubs, murmurs or gallops. ABDOMEN: Patient's abdomen is soft. Nontender to palpation nondistended. No guarding, no rebound present : Deferred. No Ennis. EXTREMITIES: Non-edematous and not cyanotic. No clubbing. Good capillary refill. SKIN: No skin breakdown. Vital Sign (Last 24 Hours) 07/28/25 06:29 Temp 98.2 Pulse 50 Resp 20 B/P (MAP) 127/68 Pulse Ox 98 O2 Delivery Room Air* O2 Flow Rate 0 FiO2 21 LABS: Laboratory: Test 07/28/25 08:33 07/28/25 06:19 07/28/25 05:50 Range/Units Troponin I High Sensitivity 10 4-75 ng/L Urine Color COLORLESS YELLOW Urine Appearance CLEAR CLEAR Urine pH 6.0 5.0-8.0 Urine Specific [place] 1.011 1.001-1.031 Urine Protein NEGATIVE NEGATIVE mg/dL Urine Glucose (UA) NEGATIVE NEGATIVE mg/dL Urine Ketones NEGATIVE NEGATIVE mg/dL Urine Occult Blood NEGATIVE NEGATIVE Urine Nitrate NEGATIVE NEGATIVE Urine Bilirubin NEGATIVE NEGATIVE mg/dL Urine Urobilinogen 0.2 0.2-1.0 mg/dL Urine Leukocyte Esterase NEGATIVE NEGATIVE Teodoro/uL Urine Opiates Screen NEGATIVE NEGATIVE Urine Barbiturates Screen NEGATIVE NEGATIVE Urine Phencyclidine Screen NEGATIVE NEGATIVE Urine Amphetamines Screen NEGATIVE NEGATIVE Urine Benzodiazepines Screen NEGATIVE NEGATIVE Urine Cocaine Screen NEGATIVE NEGATIVE Urine Marijuana (THC) Screen NEGATIVE NEGATIVE White Blood Count 5.4 4.8-10.8 K/uL Red Blood Count 4.86 4.50-6.20 MIL/uL Hemoglobin 14.7 14.0-18.0 g/dL Hematocrit 42.4 42-54 % Mean Corpuscular Volume 87.2 79-99 fL Mean Corpuscular Hemoglobin 30.2 27.0-33.0 pg Mean Corpuscular Hemoglobin Concent 34.7 32.0-36.0 g/dL Red Cell Distribution Width 12.7 11.0-15.5 % Platelet Count 240 130-400 K/uL Mean Platelet Volume 9.3 7.5-10.5 fL Immature Granulocyte % (Auto) 0.4 0-1 % Neutrophils (%) (Auto) 49.9 40.0-77.0 % Lymphocytes (%) (Auto) 41.0 21.0-51.0 % Monocytes (%) (Auto) 7.7 3.0-13.0 % Eosinophils (%) (Auto) 0.4 0.0-8.0 % Basophils (%) (Auto) 0.6 0.0-5.0 % Neutrophils # (Auto) 2.7 1.8-7.7 K/uL Lymphocytes # (Auto) 2.2 1.0-4.8 K/uL Monocytes # (Auto) 0.4 0.1-1.0 K/uL Eosinophils # (Auto) 0.02 0.00-0.70 K/uL Basophils # (Auto) 0.03 0.00-0.20 K/uL Absolute Immature Granulocyte (auto 0.02 0-1 K/uL Nucleated Red Blood Cells 0.0 0.0-0.19 % Sodium Level 136 136-145 mmol/L Potassium Level 4.0 3.5-5.1 mmol/L Chloride Level 101 101-111 mmol/L Carbon Dioxide Level 31 21-32 mmol/L Blood Urea Nitrogen 17 7-18 mg/dL Creatinine 0.9 0.5-1.3 mg/dL Glomerular Filtration Rate Calc 111 >90 mL/min Random Glucose 105 70-105 mg/dL Hemoglobin A1c 5.8 4.0-6.0 % Estimated Average Glucose (eAG) 120 70-126 mg/dL Total Calcium 9.0 8.5-10.1 mg/dL Total Creatine Kinase 215 21-232 U/L Current Medications Medications (Trade) Dose Ordered Sig/Brian Route PRN Reason Start Time Stop Time Status Last Admin Dose Admin Acetaminophen (TYLenol 500MG TAB) 500 mg Q6H PRN PO MILD PAIN (1-3) 07/28/25 10:00 08/27/25 09:59 Famotidine (Pepcid 20mg Vial) 20 mg BID IV 07/28/25 21:00 08/27/25 20:59 Ketorolac Tromethamine (toRADol) 15 mg Q6H PRN IV MODERATE PAIN (4-6) 07/28/25 10:00 08/02/25 09:59 Magnesium Sulfate 50 ml @ 0 mls/hr PROTOCOL PRN IV HYPOMAGNESEMIA 07/28/25 10:00 08/27/25 09:59 Potassium Chloride 100 ml @ 100 mls/hr AD PRN IV POTASSIUM PROTOCOL 07/28/25 10:00 08/27/25 09:59 Potassium Chloride (K-Dur/Klor-Con 20meq) 20 meq AD PRN PO POTASSIUM PROTOCOL 07/28/25 10:00 08/27/25 09:59 Potassium Chloride (KCl 10% Elixir 20meq/15ml) 20 meq AD PRN PO POTASSIUM PROTOCOL 07/28/25 10:00 08/27/25 09:59 Sodium Chloride 1,000 ml @ 75 mls/hr [id number] IV 07/28/25 10:00 08/27/25 09:59 DIAGNOSTICS / RADIOLOGY: CT abdomen showed no acute abnormality chest x-ray showed no acute ASSESSMENT: Atypical Chest pain differential cardiac versus anxiety Abdominal pain improved Dry mouth Sinus bradycardia PLAN: - the patient to be admitted to medical-surgical unit with telemetry -in reference to chest pain. We will trend troponins q.6 hours to rule out ACS. We will obtain echocardiogram. We will also request consultation with Cardiol ogy -check TSH, A1c -in reference to dry mouth. Workup was negative. Patient will need to follow up with the ENT as outpatient -monitor patient on telemetry in regards to bradycardia. Obtain a carotid ultrasound -further orders per hospitalization course. Advanced Care Planning Which of the following were discussed: Hospice care: Yes __ No _x_ Therapeutic options: Yes __ No __ Advance directives: Yes __ No __ Other discussions: Discussed with who?: Patient (Patient, family or surrogates) Voluntary nature of this service was explained to the patient? Yes _x_ No __ Amount of time spent: 25 minutes SUSIE Oconnor MD, MD Jul 28, 2025 10:15
[2025-07-28] MEDS: 0.9%NACL 1000ML 1,000 ML IV SCH (11:14)
--- NOTE | 2025-07-28 13:59 | CONS ---
CONSULT NOTE: CARDIOLOGY Reason for consult: Chest pain HPI/story at presentation: This is a pleasant 39-year-old male with past medical history as below presents with atypical symptoms including chest discomfort, dizziness. Patient bradycardia with heart rates in the 40s, had an exercise treadmill study done at [facility] that showed no evidence of chronotropic incompetence. Borderline EKG changes as well. Past medical history: See below Allergies, Meds See chart Review of systems Review of Systems Constitutional: Negative for chills and fever. HENT: Negative for ear discharge and ear pain. Eyes: Negative for photophobia and discharge. Respiratory: Negative for cough, sputum production and stridor. Cardiovascular: Negative for chest pain and palpitations. Gastrointestinal: Negative for diarrhea and vomiting. Genitourinary: Negative for frequency. Musculoskeletal: Negative for myalgias. Skin: Negative for rash. Neurological: Negative for focal weakness and seizures. Endo/Heme/Allergies: Negative for polydipsia. Psychiatric/Behavioral: Negative for hallucinations. Vitals see chart PHYSICAL EXAMINATION GENERAL: The patient is alert and oriented*3 HEENT: Nonicteric sclerae, non traumatic HEART: Regular rate and rhythm with no murmurs LUNGS: Clear to auscultation bilaterally ABDOMEN: No acute issues, non tender GENITAL, RECTAL: deferred SKIN: No rash NEUROLOGIC: NFND EXTREMITIES: No edema ASSESSMENT BRADYCARDIA, ATYPICAL SYMPTOMS Resting heart rates in the 40s Stress test ordered, 06/2025 was normal next echocardiogram was within normal limits as well. Patient attributes some symptoms to supplements. Good baseline functional capacity CORE MEASURES not applicable OTHER MEDICAL PROBLEMS Reviewed PLAN 07/28/2025 will get a coronary CTA to evaluate for ongoing issues with symptoms of chest pain, dizziness. Bradycardia may be contributing factor although, this is likely physiological given patient's exercise history. Had an ETT done and echocardiogram done recently at [facility] was also negative. Seen and examined 07/28/2025 at around 6 PM. ATTESTATION I was involved substantially in the care of this patient Number and complexity of problems addressed: 1 acute illness with systemic features Amount and or complexity of data Review of prior external note(s) from each unique source: 2+ Ordering of each unique test : 1 Review of the result(s) of each unique test: 2+ Assessment requiring an independent historian(s): No Independent interpretation of test performed by another MD/QHCP/appropriate source (not separately reported) : No Discussion of management or test interpretation with external MD/QHCP/appropriate source (not separately reported) : No Risk status (cardiac, billing related): Moderate VICKEY CADENA MD Jul 28, 2025 13:59
[2025-07-28 19:00] VITALS: BP 116/75; PULSE 60; RESP 16; TEMP 97.9
[2025-07-28] MEDS: FAMOTIDINE 20MG VIAL IV SCH (21:44)
[2025-07-29] VITALS: BP 108/53; PULSE 49; RESP 16; TEMP 97.7
--- NOTE | 2025-07-29 00:30 | HMCIMG ---
EXAMINATION: DUPLEX ULTRASOUND EXAMINATION OF THE BILATERAL CAROTID AND VERTEBRAL ARTERIES. CLINICAL HISTORY: Pre syncope. COMPARISON: None provided. TECHNIQUE: Real-time ultrasound scan of the bilateral carotid and vertebral arteries, 2-D grayscale, with color Doppler flow and spectral waveform analysis. FINDINGS: Color and spectral Doppler interrogation of the carotid vessels on the right demonstrate peak systolic velocities as follows: CCA (Proximal and distal): 87 and 87 cm/s respectively. ECA: 60 cm/s. ICA (Proximal, mid, and distal): 65, 45, and 53 cm/s respectively. Vertebral artery demonstrates antegrade flow: 57 cm/s. Right ICA/CCA ratio: 0.7 Peak systolic velocities on the left are as follows: CCA (Proximal and distal): 124 and 99 cm/s respectively. Bulb: 99 cm/s. ECA: 73 cm/s. ICA (Proximal, mid, and distal): 65, 86, and 86 cm/s respectively. Vertebral artery demonstrates antegrade flow: 84 cm/s. Left ICA/CCA ratio: 0.9 Both the common carotid arteries and their branches reveal mild intimal thickening. There is a soft plaque in the right common carotid artery causing about 10% to 20% diameter stenosis. IMPRESSION: Mild intimal thickening in the bilateral carotid arteries and their branches. Soft plaque in the right common carotid artery causing about 10% to 20% diameter stenosis. There is no significant flow limiting lesions in the remainder of the arteries. /Digna
[2025-07-29 04:00] VITALS: BP 116/74; PULSE 52; RESP 16; TEMP 98.1
[2025-07-29 06:34] LABS: IMMATURE GRANULOCYTE ABSOLUTE 0.01 K/uL (0-1); NUCLEATED RED BLOOD CELLS 0.0 % (0.0-0.19); PLATELET COUNT (AUTO) 201 K/uL (130-400); RED BLOOD CELL COUNT(AUTO) 4.56 MIL/uL (4.50-6.20); RED CELL DISTRIBUTION WIDTH 12.8 % (11.0-15.5); WHITE BLOOD COUNT (AUTO) 5.3 K/uL (4.8-10.8)
[2025-07-29 06:45] LABS: CREATININE 1.0 mg/dL (0.5-1.3); GLOMERULAR FILTR. RATE CALC 98.0 mL/min (>90); GLUCOSE,RANDOM 101.0 mg/dL (70-105); SODIUM SERUM 139.0 mmol/L (136-145); UREA NITROGEN, BLOOD 17.0 mg/dL (7-18)
--- NOTE | 2025-07-29 09:31 | PN ---
[facility] PROGRESS NOTE Date of Service: Jul 29, 2025 Time of Service: 09:31 SUBJECTIVE: [ ] 39-year-old male with no significant past medical history who presented to the hospital secondary to chest pain. The patient states for the past 2-3 weeks he has noted pain in the midsternal area. The pain would radiate towards his left arm. He describes the pain as sharp in nature and tingling in nature. Pain is present at rest. Patient does work out in gym and states he is able to perform 200 pushups. During exercise he does not get pain. He has noted that at the end of his workout he feels dizzy and he might be on the verge of passing out. He had never lost consciousness or and denied any syncopal events. He does walk also outside. Denies any falls, syncopal episode with activity. His pain has been intermittent but has been persistent. He was recently admitted to [facility] and per patient he had extensive workup done which was negative. He also feels anxious at home. Denied any shortness of breath with exertion. He has also noted some pain in the left lower quadrant of the abdomen. Denies any diarrhea at home. He has had a constipation at home. Furthermore he states he has noted dry mouth at home and he drinks adequate amount of fluids at home 07/29/25 patient is lying in bed patient appears in no distress complaints of dull chest pain when he takes a deep breath and weaned palpate. Patient is waiting for coronary CT REVIEW OF SYSTEMS CONSTITUTIONAL: Denies fevers, chills, or night sweats. No unintentional weight loss reported. NEUROLOGICAL: Denies headache, amaurosis fugax, motor weakness, sensory deficit, vertigo/spinning sensation, gait abnormalities, or tremors. ENT: No hearing loss, otalgia, otorrhea, rhinitis, rhinorrhea, hoarseness, or sore throat. CARDIOVASCULAR: Positive for chest pain. Denied any shortness of breath, dyspnea so atrium. PULMONARY: Denies any shortness of breath, cough, phlegm/sputum, hemoptysis, pleuritic chest pain. GASTROINTESTINAL: Denies any type of dysphagia to either liquids or solids. Denies nausea, vomiting, pyrosis, early satiety, abdominal pain, diarrhea, constipation, or changes in stool consistency or caliber. Denies coffee-ground emesis, hematemesis, hematochezia, or melanotic stools. GENITOURINARY: Denies frequency, urgency, nocturia, hematuria or incontinence (Storage/Irritative symptoms.) Low urinary stream, straining to void, urinary intermittency or hesitancy, splitting of the voiding stream, terminal dribbling. ENDOCRINOLOGIC: Denies polyuria, polydipsia, polyphagia or heat/cold intolerances. HEMATOLOGIC: Denies thrombophilia/previous clots, or coagulopathy/bleeding disorders. ONCOLOGIC: Denies personal history of malignancy. DERMATOLOGIC: Denies rashes or pruritus. PSYCHIATRIC: Denies any suicidal or homicidal ideation. Denies hallucinations. PHYSICAL EXAM GENERAL APPEARANCE: The patient is awake, alert, and oriented, in no acute c ardiopulmonary distress. NEUROLOGICAL: Cranial nerves II-XII grossly intact. Motor is 5/5 in bilateral upper and lower extremities proximal to distal. No sensory deficits. HEENT: Face is symmetric. Pupils are equal and reactive. Extraocular movements are intact. NECK: Supple. No JVD. No thyromegaly. No submental, submandibular, pre- /postauricular, occipital or supraclavicular lymphadenopathy. CHEST: Normal chest expansion. No Telemetry. LUNGS: Absence of any rales, rhonchi or any wheezing. CARDIOVASCULAR: Regular. S1 and S2 normal. No appreciable rubs, murmurs or gallops. ABDOMEN: Patient's abdomen is soft. Nontender to palpation nondistended. No guarding, no rebound present : Deferred. No Ennis. EXTREMITIES: Non-edematous and not cyanotic. No clubbing. Good capillary refill. SKIN: No skin breakdown. Vital Signs (last 8hr) Date Time Temp Pulse Resp B/P (MAP) Pulse Ox O2 Delivery O2 Flow Rate FiO2 07/29/25 04:00 98.1 52 16 116/74 99 Room Air LABS: Laboratory: Test 07/29/25 06:20 07/28/25 17:06 07/28/25 10:35 07/28/25 08:33 Range/Units White Blood Count 5.3 4.8-10.8 K/uL Red Blood Count 4.56 4.50-6.20 MIL/uL Hemoglobin 13.9 L 14.0-18.0 g/dL Hematocrit 41.1 L 42-54 % Mean Corpuscular Volume 90.1 79-99 fL Mean Corpuscular Hemoglobin 30.5 27.0-33.0 pg Mean Corpuscular Hemoglobin Concent 33.8 32.0-36.0 g/dL Red Cell Distribution Width 12.8 11.0-15.5 % Platelet Count 201 130-400 K/uL Mean Platelet Volume 9.0 7.5-10.5 fL Immature Granulocyte % (Auto) 0.2 0-1 % Neutrophils (%) (Auto) 53.3 40.0-77.0 % Lymphocytes (%) (Auto) 37.2 21.0-51.0 % Monocytes (%) (Auto) 8.7 3.0-13.0 % Eosinophils (%) (Auto) 0.2 0.0-8.0 % Basophils (%) (Auto) 0.4 0.0-5.0 % Neutrophils # (Auto) 2.8 1.8-7.7 K/uL Lymphocytes # (Auto) 2.0 1.0-4.8 K/uL Monocytes # (Auto) 0.5 0.1-1.0 K/uL Eosinophils # (Auto) 0.01 0.00-0.70 K/uL Basophils # (Auto) 0.02 0.00-0.20 K/uL Absolute Immature Granulocyte (auto 0.01 0-1 K/uL Nucleated Red Blood Cells 0.0 0.0-0.19 % Sodium Level 139 136-145 mmol/L Potassium Level 4.1 3.5-5.1 mmol/L Chloride Level 104 101-111 mmol/L Carbon Dioxide Level 31 21-32 mmol/L Blood Urea Nitrogen 17 7-18 mg/dL Creatinine 1.0 0.5-1.3 mg/dL Glomerular Filtration Rate Calc 98 >90 mL/min Random Glucose 101 70-105 mg/dL Total Calcium 8.5 8.5-10.1 mg/dL Troponin I High Sensitivity 12 4-75 ng/L D-Dimer Quantitative (PE/DVT) 192 0-500 ng/mL C-Reactive Protein, Quantitative < 0.50 L 0.5-3.0 mg/L Procalcitonin < 0.05 L 0.05-0.5 ng/mL Thyroid Stimulating Hormone (TSH) 1.47 0.36-3.74 uIU/mL Test 07/28/25 06:19 07/28/25 05:50 Range/Units Urine Color COLORLESS YELLOW Urine Appearance CLEAR CLEAR Urine pH 6.0 5.0-8.0 Urine Specific [place] 1.011 1.001-1.031 Urine Protein NEGATIVE NEGATIVE mg/dL Urine Glucose (UA) NEGATIVE NEGATIVE mg/dL Urine Ketones NEGATIVE NEGATIVE mg/dL Urine Occult Blood NEGATIVE NEGATIVE Urine Nitrate NEGATIVE NEGATIVE Urine Bilirubin NEGATIVE NEGATIVE mg/dL Urine Urobilinogen 0.2 0.2-1.0 mg/dL Urine Leukocyte Esterase NEGATIVE NEGATIVE Teodoro/uL Urine Opiates Screen NEGATIVE NEGATIVE Urine Barbiturates Screen NEGATIVE NEGATIVE Urine Phencyclidine Screen NEGATIVE NEGATIVE Urine Amphetamines Screen NEGATIVE NEGATIVE Urine Benzodiazepines Screen NEGATIVE NEGATIVE Urine Cocaine Screen NEGATIVE NEGATIVE Urine Marijuana (THC) Screen NEGATIVE NEGATIVE Hemoglobin A1c 5.8 4.0-6.0 % Estimated Average Glucose (eAG) 120 70-126 mg/dL Total Creatine Kinase 215 21-232 U/L Current Medications Medications (Trade) Dose Ordered Sig/Brian Route PRN Reason Start Time Stop Time Status Last Admin Dose Admin Acetaminophen (TYLenol 500MG TAB) 500 mg Q6H PRN PO MILD PAIN (1-3) 07/28/25 10:00 08/27/25 09:59 Famotidine (Pepcid 20mg Vial) 20 mg BID IV 07/28/25 21:00 08/27/25 20:59 07/28/25 21:44 20 MG Ketorolac Tromethamine (toRADol) 15 mg Q6H PRN IV MODERATE PAIN (4-6) 07/28/25 10:00 08/02/25 09:59 07/29/25 02:34 15 MG Magnesium Sulfate 50 ml @ 0 mls/hr PROTOCOL PRN IV HYPOMAGNESEMIA 07/28/25 10:00 08/27/25 09:59 Potassium Chloride 100 ml @ 100 mls/hr AD PRN IV POTASSIUM PROTOCOL 07/28/25 10:00 08/27/25 09:59 Potassium Chloride (K-Dur/Klor-Con 20meq) 20 meq AD PRN PO POTASSIUM PROTOCOL 07/28/25 10:00 08/27/25 09:59 Potassium Chloride (KCl 10% Elixir 20meq/15ml) 20 meq AD PRN PO POTASSIUM PROTOCOL 07/28/25 10:00 08/27/25 09:59 Sodium Chloride 1,000 ml @ 75 mls/hr [id number] IV 07/28/25 10:00 08/27/25 09:59 07/28/25 23:20 75 MLS/HR DIAGNOSTICS / RADIOLOGY: [ ] ASSESSMENT: Atypical Chest pain differential cardiac versus anxiety Abdominal pain improved Dry mouth Sinus bradycardia PLAN: the patient is scheduled for coronary CTA: 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 - the patient to be admitted to medical-surgical unit with telemetry consultation with Cardiology will follow recommendation possible discharged home once cleared by snow plow tractor operator. Imaging: Echo pending results , carotid Doppler noted -in reference to dry mouth. Workup was negative. Patient will need to follow up with the ENT as outpatient -monitor patient on telemetry in regards to bradycardia. Obtain a carotid ultrasound -further orders per hospitalization course. ATTESTATION BY PHYSICIAN I have seen and examined the patient. I reviewed the documentation, medical decision making, and treatment plan as noted by the mid-level provider above. I agree with the findings and plan of care. SINCERE RAE MD, ELIZABETH NP Jul 29, 2025 09:31
[2025-07-29 10:55] VITALS: BP 115/80; PULSE 58; RESP 19; TEMP 97.5
--- NOTE | 2025-07-29 11:46 | NUR ---
DCP:HOME Pt currently lives alone in his home. pt does not have any DME, home health, or provider services. Pt states that he is able to complete ADLs independently. PCP is Dr. Pipo Watkins and uses [facility] for any RX needs. At [place] pt will want to go home and family can assist with transportation. Addendum: 07/29/25 at 1150 by ANA PEREA SS Amended: Links added.
[2025-07-29] MEDS ORDERED: IOHEXOL 350 MG/ML 100ML INFUS..BTL IV ONE (15:39)
[2025-07-29 16:00] VITALS: BP 137/85; PULSE 54; RESP 19; TEMP 97.6
--- NOTE | 2025-07-29 16:28 | PN ---
Vitals/Labs Vital Signs Date Time Temp Pulse Resp B/P (MAP) Pulse Ox O2 Delivery O2 Flow Rate FiO2 07/29/25 10:55 97.5 58 19 115/80 99 Room Air 21 07/29/25 10:17 0 Laboratory Tests 07/29/25 06:20 Medications Current Medications Ketorolac Tromethamine 15 mg ONCE ONCE IV; Start 07/28/25 at 06:00; Stop 07/28/25 at 05:45; Status DC Cyclobenzaprine HCl 5 mg ONCE ONCE PO Last administered on 07/28/25at 06:02; Start 07/28/25 at 06:00; Stop 07/28/25 at 06:01; Status DC Ketorolac Tromethamine 15 mg ONCE ONCE IM Last administered on 07/28/25at 05:59; Start 07/28/25 at 06:00; Stop 07/28/25 at 06:01; Status DC Famotidine 20 mg BID IV Last administered on 07/29/25at 10:48; Start 07/28/25 at 21:00; Stop 08/27/25 at 20:59 Sodium Chloride 1,000 ml @ 75 mls/hr [id number] IV Last administered on 07/29/25at 13:26; Start 07/28/25 at 10:00; Stop 08/27/25 at 09:59 Acetaminophen 500 mg Q6H PRN PO; Start 07/28/25 at 10:00; Stop 08/27/25 at 09:59 Ketorolac Tromethamine 15 mg Q6H PRN IV Last administered on 07/29/25at 02:34; Start 07/28/25 at 10:00; Stop 08/02/25 at 09:59 Potassium Chloride 100 ml @ 100 mls/hr AD PRN IV; Start 07/28/25 at 10:00; Stop 08/27/25 at 09:59 Potassium Chloride 20 meq AD PRN PO; Start 07/28/25 at 10:00; Stop 08/27/25 at 09:59 Potassium Chloride 20 meq AD PRN PO; Start 07/28/25 at 10:00; Stop 08/27/25 at 09:59 Magnesium Sulfate 50 ml @ 0 mls/hr PROTOCOL PRN IV; Start 07/28/25 at 10:00; Stop 08/27/25 at 09:59 Iohexol 35,000 mg STK-MED ONCE IV; Start 07/29/25 at 15:39; Stop 07/29/25 at 15:39; Status DC VICKEY CADENA MD Jul 29, 2025 16:28
[2025-07-29 20:00] VITALS: BP 131/68; PULSE 64; RESP 16; TEMP 97.8; O2SAT 98
[2025-07-29 23:42] VITALS: BP 113/72; PULSE 60; RESP 20; TEMP 97.9
[2025-07-30 03:38] VITALS: BP 106/62; PULSE 45; RESP 18; TEMP 98
--- NOTE | 2025-07-30 06:36 | HMCSR ---
APPROVED REPORT EXAM: Two-dimensional and M-mode echocardiogram with Doppler and color Doppler. Study Details: CP INDICATION ICD: Chest Pain 2D Dimensions RVDd3.9 cmLVEF(%)63.9 (>50%)LVED Vol(simp.)182.8 mL IVSd0.6 (0.7-1.1cm)FS(%)35 %LVES Vol(simp.)87.2 mL LVDd4.9 (3.8-5.6cm)Ao Root(2D)3.4 (2.0-3.7cm)LVEF(%, simp.)52 % PWd1.0 (0.7-1.1cm)LVOT diam1.9 (1.8-2.4cm)LA ESV INDEX (BP)35.13 mL/m2 IVSs1.0 cm LVDs3.2 (2.5-4.0cm) PWs1.2 cm Deformation Strain Apical 414.5 % Apical 213.8 % Apical 314.8 % Global Fcfqpe21.4 % M-Mode Dimensions EPSS0.8 cm LA (MM)3.7 (1.6-4.0cm) Ao Root(MM)3.0 (2.0-3.7cm) Aortic Valve AoV Vmax1.6 m/Jackie Peak GR10.1 mmHgLVOT Vmax0.9 m/s AoV VTI0.4 mAo Mean GR5.4 mmHgLVOT VTI0.22 m KAYLA (VMAX)1.68 cm2AVA (VTI) 1.8 cm2 Mitral Valve MV E Vmax99.4 cm/sDECEL Gkih429 ms MV A Vmax57.5 cm/sP 1/2 T53 ms E/A ratio1.7MVA (PHT)4.2 cm2 TDI E/E' Umdamp02.4E/E' Lateral6.9 Medial E' Peak V9.56 cm/sLateral E' Peak V14.48 cm/s Pulmonary Valve PV Vmax1.0 m/sPV VTI0.27 mPV Mean GR2.4 mmHg PV Peak GR3.8 mmHg Left Ventricle The left ventricle is normal size. There is normal LV segmental wall motion. There is normal left evie tricular wall thickness. The LVEF is > 55%. Normal diastolic function Right Ventricle The right ventricle is normal size. The right ventricular systolic function is normal. Atria The left atrium size is normal. The interatrial septum is intact with no evidence for an atrial septa l defect. The right atrium size is normal. Aortic Valve Aortic valve is trileaflet. The aortic valve is mildly thickened. No aortic regurgitation is present. There is mild valvular aortic stenosis. Mitral Valve The mitral valve is normal in structure. There is no evidence of significant mitral regurgitation. Th ere is no mitral valve stenosis. Tricuspid Valve The tricuspid valve is normal in structure. trace tricuspid regurgitation. Pulmonic Valve The pulmonary valve is normal in structure. There is no pulmonic valvular regurgitation. Great Vessels The aortic root is normal in size. The ascending aorta is normal in size. The IVC is normal in size a nd collapses >50% with inspiration. Pericardium There is no pericardial effusion. Conclusion The LVEF is > 55%. Normal diastolic function There is normal left ventricular wall thickness. The left ventricle is normal size. There is normal LV segmental wall motion. Aortic valve is trileaflet. The aortic valve is mildly thickened. There is no pericardial effusion. No effusion Not enough TR to assess pulm hypertension Study quality was adequate
--- NOTE | 2025-07-30 06:50 | CARDIOLOGY ---
RAD REPORT: [facility] CT ANGIO RADIOLOGY REPORT: CORONARY CT ANGIOGRAPHY DATE: Jul 30, 2025 QUALITY: Excellent CLINICAL HISTORY AND INDICATION: TECHNIQUE: After obtaining a preliminary cullet washer image, contrast imaging performed on an [employer] [id number] scanner. A dedicated, limited window, coronary imaging protocol was used, with single breath-hold, retrospective ECG gating, and automated arrhythmia rejection. 100 cc of low osmolar contrast agent: Omnipaque 350 was delivered via a 18-gauge IV catheter in the right antecubital fossa, using a power injector and followed by 60 cc of normal saline bolus as a chaser. Collimated images were reformatted at 0.5 mm intervals, and sent to an offline independent workstation for interpretation, using 3D anatomic reconstructions: Curved multiplanar reconstructions, maximum intensity projections, and multiplanar imaging. No metoprolol was administered prior to scanning due to low baseline heart rate. 0.4 mg SL nitroglycerin was given. CORONARY ARTERY DESCRIPTIONS: The coronary arteries arise in normal position. Left main coronary artery: Normal caliber vessel that bifurcates into the LAD and LCx. No stenosis. Left anterior descending coronary artery: Normal caliber vessel and gives rise to diagonal and septal branches. No stenosis. Left circumflex coronary artery: Normal caliber, nondominant and gives rise to a large OM branch. No stenosis. Right coronary artery: Large, dominant vessel giving rise to the PL and PDA branches. No stenosis. CONCLUSIONS Normal coronaries Normal EF See separate radiology portion for non cardiac findings VICKEY CADENA MD Jul 30, 2025 06:50
[2025-07-30 07:48] VITALS: O2SAT 98
[2025-07-30 08:00] VITALS: BP 114/75; PULSE 50; RESP 18; TEMP 97.7
--- NOTE | 2025-07-30 10:33 | DS ---
Discharge Summary Hospital Course Summary: 39-year-old male with no significant past medical history who presented to the hospital secondary to chest pain. The patient states for the past 2-3 weeks he has noted pain in the midsternal area. The pain would radiate towards his left arm. He describes the pain as sharp in nature and tingling in nature. Pain is present at rest. Patient does work out in gym and states he is able to perform 200 pushups. During exercise he does not get pain. He has noted that at the end of his workout he feels dizzy and he might be on the verge of passing out. He had never lost consciousness or and denied any syncopal events. He does walk also outside. Denies any falls, syncopal episode with activity. His pain has been intermittent but has been persistent. He was recently admitted to [facility] and per patient he had extensive workup done which was negative. He also feels anxious at home. Denied any shortness of breath with exertion. He has also noted some pain in the left lower quadrant of the abdomen. Denies any diarrhea at home. He has had a constipation at home. Furthermore he states he has noted dry mouth at home and he drinks adequate amount of fluids at home 07/29/25 patient is lying in bed patient appears in no distress complaints of dull chest pain when he takes a deep breath and weaned palpate. Patient is waiting for coronary CT 07/30/2025. Patient was seen by automated manufacturing instructor's last night review coronary CT scan was negative cleared patient for discharge this morning. Patient with no chest pain events overnight no shortness a breath palpitation or dizziness. Patient to follow-up with automated manufacturing instructor's in one-week. Hemodynamically stable. Procedure(s): RAD REPORT: [facility] ANGIO RADIOLOGY REPORT: CORONARY CT ANGIOGRAPHY DATE: Jul 30, 2025 QUALITY: Excellent CLINICAL HISTORY AND INDICATION: TECHNIQUE: After obtaining a preliminary envelope adjuster image, contrast imaging performed on an [employer] [id number] scanner. A dedicated, limited window, coronary imaging protocol was used, with single breath-hold, retrospective ECG gating, and automated arrhythmia rejection. 100 cc of low osmolar contrast agent: Omnipaque 350 was delivered via a 18-gauge IV catheter in the right antecubital fossa, using a power injector and followed by 60 cc of normal saline bolus as a chaser. Collimated images were reformatted at 0.5 mm intervals, and sent to an offline independent workstation for interpretation, using 3D anatomic reconstructions: Curved multiplanar reconstructions, maximum intensity projections, and multiplanar imaging. No metoprolol was administered prior to scanning due to low baseline heart rate. 0.4 mg SL nitroglycerin was given. CORONARY ARTERY DESCRIPTIONS: The coronary arteries arise in normal position. Left main coronary artery: Normal caliber vessel that bifurcates into the LAD and LCx. No stenosis. Left anterior descending coronary artery: Normal caliber vessel and gives rise to diagonal and septal branches. No stenosis. Left circumflex coronary artery: Normal caliber, nondominant and gives rise to a large OM branch. No stenosis. Right coronary artery: Large, dominant vessel giving rise to the PL and PDA branches. No stenosis. CONCLUSIONS Normal coronaries Normal EF See separate radiology portion for non cardiac findings VICKEY HURD MD Assessment/Plan: discharged dx Atypical Chest pain differential cardiac versus anxiety Possible musculoskeletal chest pain POA Abdominal pain improved Dry mouth Sinus bradycardia PLAN: ADMISSION DATE: 07/28/2025 DISCHARGE DATE: 07/30/2025 DISPOSITION: Home CONDITION: Stable HEAD INSPECTOR(S): [employer] FOLLOW UP APPOINTMENT(S): PCP 2-3 days, automated manufacturing instructor: DR Hurd 1 wk PROCEDURES: Coronary CT IMAGING (S) report attached to summary : Echo, carotid MICROBIOLOGY: report attached to summary; ACTIVITY: Ad nina HOME MEDICATIONS none NEW MEDICATIONS none TEACHING: Advised patient to hydrate before and after workouts. Emergency instructions: The patient was instructed to present to the nearest Emergency Department or call 911 should their symptoms return or worsen. Discharge Instructions: REASON: PRE SYNCOPE ORDERING PHYSICIAN: SUSIE KHAN MD PROCEDURE: CAROTID - US CAROTID DUPLEX EXAMINATION: DUPLEX ULTRASOUND EXAMINATION OF THE BILATERAL CAROTID AND VERTEBRAL ARTERIES. CLINICAL HISTORY: Pre syncope. COMPARISON: None provided. TECHNIQUE: Real-time ultrasound scan of the bilateral carotid and vertebral arteries, 2-D grayscale, with color Doppler flow and spectral waveform analysis. FINDINGS: Color and spectral Doppler interrogation of the carotid vessels on the right demonstrate peak systolic velocities as follows: CCA (Proximal and distal): 87 and 87 cm/s respectively. ECA: 60 cm/s. ICA (Proximal, mid, and distal): 65, 45, and 53 cm/s respectively. Vertebral artery demonstrates antegrade flow: 57 cm/s. Right ICA/CCA ratio: 0.7 Peak systolic velocities on the left are as follows: CCA (Proximal and distal): 124 and 99 cm/s respectively. Bulb: 99 cm/s. ECA: 73 cm/s. ICA (Proximal, mid, and distal): 65, 86, and 86 cm/s respectively. Vertebral artery demonstrates antegrade flow: 84 cm/s. Left ICA/CCA ratio: 0.9 Both the common carotid arteries and their branches reveal mild intimal thickening. There is a soft plaque in the right common carotid artery causing about 10% to 20% diameter stenosis. IMPRESSION: Mild intimal thickening in the bilateral carotid arteries and their branches. Soft plaque in the right common carotid artery causing about 10% to 20% diameter stenosis. There is no significant flow limiting lesions in the remainder of the arteries. /[facility] REASON: CHEST PAIN ORDERING PHYSICIAN: SUSIE KHAN MD PROCEDURE: ECHO CMP - ECHO 2-D COMPLETE APPROVED REPORT EXAM: Two-dimensional and M-mode echocardiogram with Doppler and color Doppler. Study Details: CP INDICATION ICD: Chest Pain 2D Dimensions RVDd 3.9 cm LVEF(%) 63.9 (>50%) LVED Vol(simp.) 182.8 mL IVSd 0.6 (0.7-1.1cm) FS(%) 35 % LVES Vol(simp.) 87.2 mL LVDd 4.9 (3.8-5.6cm) Ao Root(2D) 3.4 (2.0-3.7cm) LVEF(%, simp.) 52 % PWd 1.0 (0.7-1.1cm) LVOT diam 1.9 (1.8-2.4cm) LA ESV INDEX (BP) 35.13 mL/m2 IVSs 1.0 cm LVDs 3.2 (2.5-4.0cm) PWs 1.2 cm Deformation Strain Apical 4 14.5 % Apical 2 13.8 % Apical 3 14.8 % Global Strain 14.4 % M-Mode Dimensions EPSS 0.8 cm LA (MM) 3.7 (1.6-4.0cm) Ao Root(MM) 3.0 (2.0-3.7cm) Aortic Valve AoV Vmax 1.6 m/s Ao Peak GR 10.1 mmHg LVOT Vmax 0.9 m/s AoV VTI 0.4 m Ao Mean GR 5.4 mmHg LVOT VTI 0.22 m KAYLA (VMAX) 1.68 cm2 KAYLA (VTI) 1.8 cm2 Mitral Valve MV E Vmax 99.4 cm/s DECEL Time 186 ms MV A Vmax 57.5 cm/s P 1/2 T 53 ms E/A ratio 1.7 MVA (PHT) 4.2 cm2 TDI E/E' Medial 10.4 E/E' Lateral 6.9 Medial E' Peak V 9.56 cm/s Lateral E' Peak V 14.48 cm/s Pulmonary Valve PV Vmax 1.0 m/s PV VTI 0.27 m PV Mean GR 2.4 mmHg PV Peak GR 3.8 mmHg Left Ventricle The left ventricle is normal size. There is normal LV segmental wall motion. There is normal left ventricular wall thickness. The LVEF is > 55%. Normal diastolic function Right Ventricle The right ventricle is normal size. The right ventricular systolic function is normal. Atria The left atrium size is normal. The interatrial septum is intact with no evidence for an atrial septal defect. The right atrium size is normal. Aortic Valve Aortic valve is trileaflet. The aortic valve is mildly thickened. No aortic regurgitation is present. There is mild valvular aortic stenosis. Mitral Valve The mitral valve is normal in structure. There is no evidence of significant mitral regurgitation. There is no mitral valve stenosis. Tricuspid Valve The tricuspid valve is normal in structure. trace tricuspid regurgitation. Pulmonic Valve The pulmonary valve is normal in structure. There is no pulmonic valvular regurgitation. Great Vessels The aortic root is normal in size. The ascending aorta is normal in size. The IVC is normal in size and collapses >50% with inspiration. Pericardium There is no pericardial effusion. Conclusion The LVEF is > 55%. Normal diastolic function There is normal left ventricular wall thickness. The left ventricle is normal size. There is normal LV segmental wall motion. Aortic valve is trileaflet. The aortic valve is mildly thickened. There is no pericardial effusion. No effusion Not enough TR to assess pulm hypertension Study quality was adequate DICTATED BY: VICKEY HURD MD DATE: 07/28/25 1153 REASON: severe LLQ abdominal pain ORDERING PHYSICIAN: ELKE BOWIE MD PROCEDURE: ABD PEL WO - CT ABDOMEN/PELVIS W/O CONTRAST EXAM: CT Abdomen and Pelvis without IV contrast CLINICAL HISTORY: severe LLQ abdominal pain TECHNIQUE: Axial computed tomography images of the abdomen and pelvis without intravenous contrast. CT scan performed according to ALARA. Automated exposure control used during exam. CONTRAST: without intravenous contrast. COMPARISON: None provided. FINDINGS: LUNG BASES: The lung bases appear clear. No pleural effusions are seen. LIVER: Unremarkable. GALLBLADDER AND BILE DUCTS: The gallbladder appears within normal limits. No radioopaque gallstones are seen. No biliary ductal dilatation is evident. PANCREAS: Unremarkable. SPLEEN: Unremarkable. ADRENAL GLANDS: Unremarkable. KIDNEYS, URETERS, AND BLADDER: The kidneys appear within normal limits. There is no hydronephrosis or hydroureter. No urinary calculi are seen. STOMACH AND BOWEL: Unremarkable appearance of the stomach and bowel. No evidence of bowel obstruction. No evidence suggesting enteritis or colitis. APPENDIX: No evidence of acute appendicitis on CT examination. PERITONEUM: No free fluid. No free air. LYMPH NODES: No lymphadenopathy is evident. REPRODUCTIVE: Unremarkable as visualized. VASCULATURE: No evidence of abdominal aortic aneurysm. BONES: No aggressive appearing osseous lesion. No acute osseous pathology evident. Grade one listhesis of L5 on S1. IMPRESSION: No acute intra-abdominal or pelvic abnormality. /[facility] DICTATED BY: JERRELL WALTON Jr., MD DATE: 07/28/25 0848 Home Medications: Active Scripts Cyclobenzaprine HCl (Cyclobenzaprine HCl) 10 Mg Tablet, 10 MG PO TID, #15 TAB 0 Refills Prov:HUBER PERALTA MD 04/19/22 Ibuprofen (Ibuprofen 800 mg Tab) 800 Mg Tab, 800 MG PO Q8HR PRN for PAIN, #30 TAB 0 Refills Prov:HUBER PERALTA MD 04/19/22 [Dexpak 6 Day 1.5 Mg] No Conflict Check, 1 BAR PO DAILY for 6 Days, #1 PACK 0 Refills Prov:HUBER PERALTA MD 04/19/22 Discontinued Medications: Cyclobenzaprine HCl (Cyclobenzaprine HCl) 10 Mg Tablet 10 MG PO TID, #15 TAB 0 Refills [Dexpak 6 Day 1.5 Mg] () 1 BAR PO DAILY for 6 Days, #1 PACK 0 Refills Ibuprofen (Ibuprofen 800 mg Tab) 800 Mg Tab 800 MG PO Q8HR PRN for PAIN, #30 TAB 0 Refills Time spent arranging discharge: 31-60 minutes ATTESTATION BY PHYSICIAN I have seen and examined the patient. I reviewed the documentation, medical decision making, and treatment plan as noted by the mid-level provider above. I agree with the findings and plan of care. SINCERE RAE MD, ELIZABETH NP Jul 30, 2025 10:33
--- NOTE | 2025-07-30 11:30 | NUR ---
DISCHARGE PERIPHERAL IV REMOVED DISCHARGE EDUCATION AND INSTRUCTIONS PROVIDED TO PATIENT PATIENT AWARE TO FOLLOW UP WITH PCP IN 2-3 DAYS AND TO FOLLOW UP WITH CARDIOLOGY IN 1 WEEK ALL QUESTIONS ANSWERED.
[2025-07-30 12:00] VITALS: BP 136/73; PULSE 50; RESP 18; TEMP 97.9
== END 2025-07-30 11:30 | disposition home or self-care (01) ==
LOC: EDH 05:16 → INTOOBSV 05:17 → EDHIP 05:17 → UNDOADMIN 09:34 → EDHIP 09:34 → 3BH 07-29 10:55
PROVIDERS: ADMIT Internal Medicine; ATTEND Internal Medicine
DX: R07.89 Other chest pain (principal); R10.32 Left lower quadrant pain; R00.1 Bradycardia, unspecified; R51.9 Headache, unspecified; R42 Dizziness and giddiness; R55 Syncope and collapse; R11.2 Nausea with vomiting, unspecified; I35.0 Nonrheumatic aortic (valve) stenosis; F41.9 Anxiety disorder, unspecified; K59.00 Constipation, unspecified; R68.2 Dry mouth, unspecified; R20.2 Paresthesia of skin; Z79.899 Other long term (current) drug therapy; Z98.890 Other specified postprocedural states
CPT/HCPCS: 96374; 99285; 83036; 84443; 82550; 84484 ×4; 80048 ×2; 80305; 85025 ×2; 85378; 86140; 81003; 36415 ×2; 71045; 74176; 93306 ×2; 93356; 93880; 96372; 93005 ×2; 84145; 96376 ×2; 96375; 75574; J1308 ×4; J1885 ×2; G0378 ×17; Q9967